=== PATIENT | female | born 1935 | race Caucasian/White ===

== ENCOUNTER → 2016-12-21 | Outpatient (CLI) | payer MEDICARE, BC ==
[~2016-12-21] MED LIST: ALBU8.5H INH; ALLO300T74 PO; ASPI81TA2 PO; ATOR40TA PO; CHOL400C7 PO; CLOB15CR4; DABI150C PO; DICL100G5 TOP; DOCU-175 PO; FLUT1DIS PO; FURO40TA5 PO; HYDR-4246 PO; IPRA3AMP AEROSOL; LISI-625 PO; MAGN250T33 PO; MULT-795 PO; OMEP20CA10 PO; POTA20TA10 PO; PRED20TA PO; SOTA80TA20 PO; TURM500C8; UBID200C8 PO
== END ==
LOC: NWCC 11:24
PROVIDERS: ATTEND Surgery
DX: L98.492 Non-pressure chronic ulcer of skin of other sites with fat layer exposed (principal); R22.2 Localized swelling, mass and lump, trunk
CPT/HCPCS: 97605; A6237

== ENCOUNTER → 2016-12-25 | Outpatient (CLI) | payer MEDICARE, BC | LOC: NWCC 10:29 | PROVIDERS: ATTEND Surgery | DX: L98.492 Non-pressure chronic ulcer of skin of other sites with fat layer exposed (principal); R22.2 Localized swelling, mass and lump, trunk | CPT/HCPCS: 97605; A6237 ==

== ENCOUNTER → 2016-12-28 | Outpatient (CLI) | payer MEDICARE, BC | LOC: NWCC 11:25 | PROVIDERS: ATTEND Surgery | DX: L98.492 Non-pressure chronic ulcer of skin of other sites with fat layer exposed (principal); R22.2 Localized swelling, mass and lump, trunk | CPT/HCPCS: 97605; A6021; A6237 ==

== ENCOUNTER → 2017-01-01 | Outpatient (CLI) | payer MEDICARE, BC | LOC: NWCC 10:24 | PROVIDERS: ATTEND Surgery | DX: L98.492 Non-pressure chronic ulcer of skin of other sites with fat layer exposed (principal); R22.2 Localized swelling, mass and lump, trunk; L59.8 Other specified disorders of the skin and subcutaneous tissue related to radiation | CPT/HCPCS: 97605; A6237; G0463 ==

== ENCOUNTER → 2017-01-02 | Outpatient (CLI) | payer MEDICARE, BC | LOC: NWCC 12:58 | PROVIDERS: ATTEND Internal Medicine | DX: L59.8 Other specified disorders of the skin and subcutaneous tissue related to radiation (principal) | CPT/HCPCS: 99183 ==

== ENCOUNTER → 2017-01-03 | Outpatient (CLI) | payer MEDICARE, BC | LOC: NWCC 13:00 | PROVIDERS: ATTEND Internal Medicine | DX: L59.8 Other specified disorders of the skin and subcutaneous tissue related to radiation (principal) | CPT/HCPCS: 99183 ==

== ENCOUNTER → 2017-01-04 | Outpatient (CLI) | payer MEDICARE, BC | LOC: NWCC 11:00 | PROVIDERS: ATTEND Internal Medicine | DX: L59.8 Other specified disorders of the skin and subcutaneous tissue related to radiation (principal); L98.492 Non-pressure chronic ulcer of skin of other sites with fat layer exposed | CPT/HCPCS: 97605; A6237; G0277; G0463; 99183 ==

== ENCOUNTER → 2017-01-07 | Outpatient (CLI) | payer MEDICARE, BC | LOC: NWCC 13:04 | PROVIDERS: ATTEND Internal Medicine | DX: L59.8 Other specified disorders of the skin and subcutaneous tissue related to radiation (principal) | CPT/HCPCS: 99183 ==

== ENCOUNTER → 2017-01-08 | Outpatient (CLI) | payer MEDICARE, BC | LOC: NWCC 09:54 | PROVIDERS: ATTEND Surgery | DX: L98.492 Non-pressure chronic ulcer of skin of other sites with fat layer exposed (principal); R22.2 Localized swelling, mass and lump, trunk | CPT/HCPCS: 97605; A6237 ==

== ENCOUNTER → 2017-01-08 | Outpatient (CLI) | payer MEDICARE, BC ==
[2017-01-08 13:07] LABS: BASOPHILS % (AUTO) 0.4 % (0-2); EOSINOPHILS # (AUTO) 0.1 T/MM3 (0-0.5); EOSINOPHILS % (AUTO) 0.9 % (0-4); HCT - HEMATOCRIT 43.1 % (36-46); IMMATURE GRANULOCYTE # (AUTO) 0.01 T/MM3 (0.00-0.03); IMMATURE GRANULOCYTE % (AUTO) 0.1 % (0.0-0.5); LYMPHOCYTES # (AUTO) 2.1 T/MM3 (1-4.8); LYMPHOCYTES % (AUTO) 26.3 % (23-45); MEAN CORPUSCULAR HGB 26.6 UUG (26-34); MEAN CORPUSCULAR HGB CONC(MCHC 32.5 GM/DL (31-37); MEAN CORPUSCULAR VOLUME 81.8 UM3 (80-100); MEAN PLATELET VOLUME 11.4 UM3 (9.4-12.4); MONOCYTES # (AUTO) 0.7 T/MM3 (0-0.8); MONOCYTES % (AUTO) 8.6 % (0-9.0); NEUTROPHILS #(AUTO)-ABSOLUTE 5.1 T/MM3 (1.8-7.7); NEUTROPHILS % (AUTO) 63.7 % (33-66); RED BLOOD COUNT 5.27 M/MM3 (4.00-5.20)
--- NOTE | 2017-01-08 13:28 | DI ---
Indication: ITS.REASON: R60.0 LOCALIZED EDEMA PROCEDURE: US VENOUS DUPLEX, LOWER EXT LT: Encounter: Initial Comparison: None Technique: Color Doppler duplex and grayscale sonographic imaging of the left lower extremity was performed. Findings: There is no evidence for acute deep venous thrombosis in the left thigh. Specifically, serial graded compression was performed from the inguinal ligament to the popliteal bifurcation, on the left thigh, demonstrating appropriate compressibility of the deep venous system. In addition, color and pulsed Doppler demonstrate appropriate spontaneous flow, variation with respiration, and augmentation with calf compression. At the ankle, normal flow is identified in the posterior tibial veins; these vessels are also normal in caliber. Impression: No evidence of acute DVT in the left lower limb. .
--- NOTE | 2017-01-08 13:30 | DI ---
INDICATION: ITS.REASON: R60.0 LOCALIZED EDEMA PROCEDURE: CHEST 2-VIEWS UPRIGHT (PA \T\ LAT) Encounter: Initial COMPARISON: December 05, 2016 FINDINGS: There is a small right pleural effusion. Mild pulmonary vascular, similar to the prior study. No lobar consolidative pneumonia or pneumothorax. Heart size and mediastinal contours are stable. Impression: Small right pleural effusion and mild pulmonary vascular congestion. .
[2017-01-08 13:31] LABS: ALBUMIN 3.5 G/DL (3.5-5.0); ALBUMIN/GLOBULIN RATIO 1.1 RATIO (1.1-2.2); ALKALINE PHOSPHATASE 153 U/L (38-126); ALT (SGPT) 42 U/L (9-52); ANION GAP 5 MEQ/L (5-15); AST (SGOT) 57 U/L (14-36); BUN/CREATININE RATIO 20 RATIO (6-26); CALCIUM 9.8 MG/DL (8.4-10.2); CHLORIDE 105 MEQ/L (98-107); CO2 - CARBON DIOXIDE 31 MEQ/L (22-30); CREATININE 1.1 MG/DL (0.7-1.2); GLOMERULAR FILTRATION RATE 48; GLUCOSE 119 MG/DL (65-110); POTASSIUM 3.7 MEQ/L (3.6-5); SODIUM 141 MEQ/L (134-144); TOTAL PROTEIN 6.7 G/DL (6.3-8.2)
[2017-01-08 14:45] LABS: PROBNP 22900 PG/ML (0-175)
== END ==
LOC: IMA 12:31
PROVIDERS: ATTEND Family Medicine
DX: R60.0 Localized edema (principal); J90 Pleural effusion, not elsewhere classified; R09.89 Other specified symptoms and signs involving the circulatory and respiratory systems; R50.9 Fever, unspecified
CPT/HCPCS: 36415; 80053; 83880; 85025; 85379; 87486; 87581; 87633; 87798

== ENCOUNTER → 2017-01-10 | Outpatient (CLI) | payer MEDICARE, BC | LOC: NWCC 08:02 | PROVIDERS: ATTEND Internal Medicine | DX: L98.492 Non-pressure chronic ulcer of skin of other sites with fat layer exposed (principal); L59.8 Other specified disorders of the skin and subcutaneous tissue related to radiation | CPT/HCPCS: 11042; 97605; A6237 ==

== ENCOUNTER → 2017-01-11 | Outpatient (CLI) | payer MEDICARE, BC | LOC: NWCC 07:55 | PROVIDERS: ATTEND Internal Medicine | DX: L59.8 Other specified disorders of the skin and subcutaneous tissue related to radiation (principal) | CPT/HCPCS: 99183 ==

== ENCOUNTER → 2017-01-15 | Outpatient (CLI) | payer MEDICARE, BC | LOC: NWCC 07:58 | PROVIDERS: ATTEND Surgery | DX: L59.8 Other specified disorders of the skin and subcutaneous tissue related to radiation (principal); L98.492 Non-pressure chronic ulcer of skin of other sites with fat layer exposed; R22.2 Localized swelling, mass and lump, trunk | CPT/HCPCS: 97605; A6209; A6237; G0277; 99183 ==

== ENCOUNTER → 2017-01-16 | Outpatient (CLI) | payer MEDICARE, BC | LOC: NWCC 07:57 | PROVIDERS: ATTEND Internal Medicine | DX: L59.8 Other specified disorders of the skin and subcutaneous tissue related to radiation (principal) | CPT/HCPCS: 99183 ==

== ENCOUNTER → 2017-01-17 | Outpatient (CLI) | payer MEDICARE, BC | LOC: NWCC 07:59 | PROVIDERS: ATTEND Internal Medicine | DX: L59.8 Other specified disorders of the skin and subcutaneous tissue related to radiation (principal) | CPT/HCPCS: 99183 ==

== ENCOUNTER → 2017-01-18 | Outpatient (CLI) | payer MEDICARE, BC ==
[~2017-01-18] MED LIST changes: +ATOR40TA64 PO; +RIVA20TA PO
== END ==
LOC: NWCC 07:59
PROVIDERS: ATTEND Internal Medicine
DX: L59.8 Other specified disorders of the skin and subcutaneous tissue related to radiation (principal); T81.89XA Other complications of procedures, not elsewhere classified, initial encounter; Y83.8 Other surgical procedures as the cause of abnormal reaction of the patient, or of later complication, without mention of misadventure at the time of the procedure; R22.2 Localized swelling, mass and lump, trunk
CPT/HCPCS: 97605; A6237; G0277; 99183

== ENCOUNTER → 2017-01-21 | Outpatient (CLI) | payer MEDICARE, BC ==
[~2017-01-21] MED LIST changes: -ATOR40TA64 PO; -RIVA20TA PO
== END ==
LOC: NWCC 07:53
PROVIDERS: ATTEND Internal Medicine
DX: L59.8 Other specified disorders of the skin and subcutaneous tissue related to radiation (principal)
CPT/HCPCS: 99183

== ENCOUNTER → 2017-01-22 | Outpatient (CLI) | payer MEDICARE, BC ==
[~2017-01-22] MED LIST changes: +ATOR40TA64 PO; +RIVA20TA PO
== END ==
LOC: NWCC 07:56
PROVIDERS: ATTEND Surgery
DX: L59.8 Other specified disorders of the skin and subcutaneous tissue related to radiation (principal); L98.492 Non-pressure chronic ulcer of skin of other sites with fat layer exposed; R22.2 Localized swelling, mass and lump, trunk
CPT/HCPCS: 97605; A6237; G0277; 99183

== ENCOUNTER → 2017-01-23 | Outpatient (CLI) | payer MEDICARE, BC | LOC: NWCC 07:57 | PROVIDERS: ATTEND Internal Medicine | DX: L59.8 Other specified disorders of the skin and subcutaneous tissue related to radiation (principal) | CPT/HCPCS: 99183 ==

== ENCOUNTER → 2017-01-24 | Outpatient (CLI) | payer MEDICARE, BC | LOC: NWCC 07:55 | PROVIDERS: ATTEND Surgery | DX: L59.8 Other specified disorders of the skin and subcutaneous tissue related to radiation (principal) | CPT/HCPCS: 99183 ==

== ENCOUNTER → 2017-01-25 | Outpatient (CLI) | payer MEDICARE, BC | LOC: NWCC 07:56 | PROVIDERS: ATTEND Internal Medicine | DX: L59.8 Other specified disorders of the skin and subcutaneous tissue related to radiation (principal) | CPT/HCPCS: A6237; G0277; 99183 ==

== ENCOUNTER → 2017-01-28 | Outpatient (CLI) | payer MEDICARE, BC | LOC: NWCC 08:00 | PROVIDERS: ATTEND Internal Medicine | DX: L59.8 Other specified disorders of the skin and subcutaneous tissue related to radiation (principal); L98.492 Non-pressure chronic ulcer of skin of other sites with fat layer exposed | CPT/HCPCS: 97605; G0277; 99183 ==

== ENCOUNTER → 2017-01-29 | Outpatient (CLI) | payer MEDICARE, BC | LOC: NWCC 07:56 | PROVIDERS: ATTEND Surgery | DX: L59.8 Other specified disorders of the skin and subcutaneous tissue related to radiation (principal); L98.492 Non-pressure chronic ulcer of skin of other sites with fat layer exposed | CPT/HCPCS: 97605; A6237; G0277; 99183 ==

== ENCOUNTER → 2017-01-30 | Outpatient (CLI) | payer MEDICARE, BC | LOC: NWCC 08:00 | PROVIDERS: ATTEND Internal Medicine | DX: L59.8 Other specified disorders of the skin and subcutaneous tissue related to radiation (principal) | CPT/HCPCS: 99183 ==

== ENCOUNTER → 2017-01-31 | Outpatient (CLI) | payer MEDICARE, BC | LOC: NWCC 07:58 | PROVIDERS: ATTEND Internal Medicine | DX: L59.8 Other specified disorders of the skin and subcutaneous tissue related to radiation (principal) | CPT/HCPCS: 99183 ==

== ENCOUNTER → 2017-02-01 | Outpatient (CLI) | payer MEDICARE, BC | LOC: NWCC 07:55 | PROVIDERS: ATTEND Orthopaedic Surgery | DX: L59.8 Other specified disorders of the skin and subcutaneous tissue related to radiation (principal) | CPT/HCPCS: A6237; G0277; 99183 ==

== ENCOUNTER → 2017-02-04 | Outpatient (CLI) | payer MEDICARE, BC | LOC: NWCC 07:56 | PROVIDERS: ATTEND Internal Medicine | DX: L59.8 Other specified disorders of the skin and subcutaneous tissue related to radiation (principal) | CPT/HCPCS: 97605; G0277; 99183 ==

== ENCOUNTER → 2017-02-05 | Outpatient (CLI) | payer MEDICARE, BC | LOC: NWCC 08:30 | PROVIDERS: ATTEND Surgery | DX: L98.492 Non-pressure chronic ulcer of skin of other sites with fat layer exposed (principal); L59.8 Other specified disorders of the skin and subcutaneous tissue related to radiation | CPT/HCPCS: 97605; A6237 ==

== ENCOUNTER 2017-02-07 09:29 | Day surgery (SDC) | payer MEDICARE, BC ==
[~2017-02-07] VITALS: Ht 154.9 cm; Wt 88.7 kg
[2017-02-07] VITALS (7 sets, daily range): BP systolic 119–146; BP diastolic 64–80; PULSE 66–99; RESP 16; TEMP 97–98.2; O2SAT 91–97; Ht 154.9 cm; Wt 88.7 kg
[~2017-02-07 09:29] MED LIST changes: +LIDOCAINE 1% (10mg/ml) 2ml SDV INJ ONE; +NORMAL SALINE 1,000 ML IV PRN
--- OUTSIDE RECORDS SUMMARY | 2017-02-07 09:37 | XMS REPORT | Summary of Care ---
Author Author Erica NEWTON Zeinab Organization Unknown Address [address] [place], [place] [id number] Phone Unavailable Care Team Providers Care Product Managent Intern Name Role Phone Zienab Maldonado APRN Unavailable Unavailable Giovanny Cutler M.D. Unavailable Unavailable Cynthia Gonsalves Unavailable Unavailable Unavailable Unavailable Functional Status Name Dates Details Functional status health issues are not documented Status: Name Dates Details Cognitive status health issues are not documented Status: Problems Name Dates Details Frequent episodes of bronchitis (490, J40) Status: Active Hypertension (401.9, I10) Status: Active Hyperlipidemia (272.4, E78.5) Status: Active Congestive heart failure (428.0, I50.9) Status: Active Chronic cough (786.2, R05) Status: Active Nocturnal hypoxemia (327.24, G47.34) Status: Active Obstructive sleep apnea (327.23, G47.33) Status: Active 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 Isaias Cutler M.D. * Start Active Flonase Allergy Relief 50 MCG/ACT Nasal Suspension * Refills: 0 Isaias Cutler M.D. * Start Active Allopurinol 300 MG Oral Tablet * Refills: 0 Isaias Cutler M.D. * Start Active Furosemide 40 MG Oral Tablet * Refills: 0 Omayra Amado, Isaias Baltazar * Start Active Klor-Con M20 20 MEQ Oral Tablet Extended Release * Refills: 0 Isaias Cutler M.D. Start Active Co Q-10 200 MG Oral Capsule * Refills: 0 Omayra Amado, Isaias Baltazar * Start Active Sotalol HCl - 80 MG Oral Tablet * Refills: 0 Omayra Amado, Isaias Baltazar * Start Active Magnesium 250 MG Oral Tablet * Refills: 0 Omayra Amado, Isaias Baltazar * Start Active Centrum Silver Oral Tablet * Refills: 0 Omayra Amado, Iasias Baltazar * Start Active Omeprazole 20 MG Oral Capsule Delayed Release * Refills: 0 Omayra Amado, Isaias Baltazar * Start Active Oxygen DC Oxygen per pt.Home O2 at 2L 8hrs w/sleep. Concentrator only. Dx: J84.1. Noc Ox SpO2<88=3:31:20, Lowest=62% * Quantity: 1 Refills: 0 Omayra Amado, Isaias Baltazar * Start Active Clobetasol Propionate 0.05 % External Cream APPLY SPARINGLY TO AFFECTED AREA(S) TWICE DAILY * Refills: 0 * Start 29-Nov-2016 Active Vitamin D3 400 UNIT Oral Capsule * Refills: 0 * Start 29-Nov-2016 Active Turmeric 500 MG Oral Tablet * Refills: 0 * Start 29-Nov-2016 Active Stool Softener 100 MG Oral Tablet * Refills: 0 * Start 29-Nov-2016 Active Pradaxa 150 MG Oral Capsule * Refills: 0 * Start 27-Dec-2016 Active Atorvastatin Calcium 40 MG Oral Tablet * Refills: 0 * Start 27-Dec-2016 Active Ipratropium-Albuterol 0.5-2.5 (3) MG/3ML Inhalation Solution * Refills: 0 * Start 27-Dec-2016 Active Perforomist 20 MCG/2ML Inhalation Nebulization Solution USE 1 VIAL IN NEBULIZER EVERY 12 HOURS. dx:J44.9 * Quantity: 120 Refills: 11 Tungate PIPE ASSEMBLY WORKER, Zeinab * Start 28-Dec-2016 Active Budesonide 0.5 MG/2ML Inhalation Suspension Use one vial in nebulizer twice daily DX:COPD J44.9 * Quantity: 120 Refills: 11 Tungate PIPE ASSEMBLY WORKER, Zeinab * Start 28-Dec-2016 Active Allergies and Adverse Reactions Name Dates Details Morphine Derivatives (Allergy) Status: Active Sulfa Drugs (Allergy) Status: Active Adhesive Tape (Allergy) Status: Active Past Medical History Name Dates Details History of hyperlipidemia (V12.29, Z86.39) Status: Resolved History of hypertension (V12.59, Z86.79) Status: Resolved History of hyperthyroidism (V12.29, Z86.39) Status: Resolved History of Kidney tumor (239.5, D49.519) Status: Resolved History of malignant neoplasm (V10.90, Z85.9) Status: Resolved History of malignant neoplasm of breast (V10.3, Z85.3) Status: Resolved History of osteoarthritis (V13.4, Z87.39) Status: Resolved Procedures Procedure Dates Details History of Appendectomy History of Hysterectomy History of Cataract Surgery History of Knee Surgery Left History of Gallbladder Surgery History of Knee Surgery Right History of Colonoscopy History of Breast Surgery Mastectomy Procedures not documented Immunization Name Dates Details Prevnar 13 Intramuscular Suspension Lot #: [id number] on: Family History Name Dates Details Family history of arthritis (V17.7, Z82.61) Status: Active Family history of hypertension (V17.49, Z82.49) Status: Active Family history of cerebrovascular accident (CVA) (V17.1, Z82.3) Status: Active Name Dates Details Family history of malignant neoplasm (V16.9, Z80.9) Status: Active Family history of Chronic cough (786.2, R05) Status: Active Name Dates Details Family history of malignant neoplasm (V16.9, Z80.9) Status: Active Family history of cardiac disorder (V17.49, Z82.49) Status: Active Social History Name Dates Details Unknown if ever smoked Vital Signs Date Test Result Details 27-Dec-2016 10:23 BP Systolic 122 mm[Hg] Status: Comments: Location: ; Position: BP Diastolic 84 mm[Hg] Status: Comments: Location: ; Position: Heart Rate 74 /min Status: Comments: Location: ; Physical Findings 20 Status: Comments: Respiration Height 61 in Status: Weight 187 lb Status: Physical Findings 93 Status: Comments: O2 Saturation Body Mass Index Calculated 35.33 kg/m2 Status: Body Surface Area Calculated 1.84 m2 Status: 29-Nov-2016 10:33 BP Systolic 136 mm[Hg] Status: Comments: Location: ; Position: BP Diastolic 84 mm[Hg] Status: Comments: Location: ; Position: Heart Rate 113 /min Status: Comments: Location: ; Physical Findings 18 Status: Comments: Respiration Height 61 in Status: Weight 193 lb Status: Physical Findings 93 Status: Comments: O2 Saturation Body Mass Index Calculated 36.47 kg/m2 Status: Body Surface Area Calculated 1.86 m2 Status: Results Date Description Value Details Results not documented Plan of Care Name Dates Details Planned Observations Planned Goals not documented Planned Encounters Appointment; Provider: Zeinab Maldonado A.P.R.N. On 10:15 Interventions Provided Medication Changes* Advair Diskus 100-50 MCG/DOSE Inhalation Aerosol Powder Breath Activated - Completed * Budesonide 0.5 MG/2ML Inhalation Suspension - Start * Perforomist 20 MCG/2ML Inhalation Nebulization Solution - Start Instructions Name Dates Details Instructions not documented Encounters Appointment; Zeinab Maldonado A.P.R.N. Encounter Diagnosis: Problem not documented On 29-Nov-2016 10:30 Appointment; Zeinab Maldonado A.P.R.N. Encounter Diagnosis: Problem not documented On 01-Nov-2016 10:00 Appointment; Isaias Cutler M.D. Encounter Diagnosis: Problem not documented On 13:45 Appointment; Isaias Cutler M.D. Encounter Diagnosis: Problem not documented On 11:00
--- OUTSIDE RECORDS SUMMARY | 2017-02-07 09:37 | XMS REPORT | Summary of Care ---
Author Author Erica NEWTON Zeinab Organization Unknown Address [address] [place], [place] [id number] Phone Unavailable Care Team Providers Care Varnish Finisher Name Role Phone Zeinab Maldonado APRN Unavailable Unavailable Giovanny Cutler M.D. 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 Obstructive sleep apnea (327.23, G47.33) Status: Active Congestive heart failure (428.0, I50.9) Status: Active Chronic cough (786.2, R05) Status: Active Hyperlipidemia (272.4, E78.5) Status: Active Nocturnal hypoxemia (327.24, G47.34) Status: Active Chronic obstructive pulmonary disease (496, J44.9) Status: Active Hypertension (401.9, I10) Status: Active Frequent episodes of bronchitis (490, J40) Status: Active Chronic bronchitis, unspecified chronic bronchitis type (491.9, J42) Status: Active Medications Name Dates Details ProAir HFA 108 (90 Base) MCG/ACT Inhalation Aerosol Solution INHALE 2 PUFFS 3 TIMES DAILY NEEDED. Isaias Cutler M.D. * Start Active Flonase Allergy Relief 50 MCG/ACT Nasal Suspension * Refills: 0 Isaias Cutler M.D. Start Active Allopurinol 300 MG Oral Tablet * Refills: 0 Isaias Cutler M.D. Start Active Furosemide 40 MG Oral Tablet * Refills: 0 Isaias Cutler M.D. * Start Active Klor-Con M20 20 MEQ [...] Omayra Amado, Isaias Baltazar * Start Active Omeprazole 20 MG [...] dx:J44.9 * Quantity: 120 Refills: 11 Tungate ROUGE MIXER, Zeinab * Start 28-Dec-2016 Active Budesonide 0.5 MG/2ML Inhalation Suspension Use one vial in nebulizer twice daily DX:COPD J44.9 * Quantity: 120 Refills: 11 Tungate ROUGE MIXER, Zeinab * Start 28-Dec-2016 Active Allergies and [...] Resolved Procedures Procedure Dates Details History of Breast Surgery Mastectomy History of Appendectomy History of Hysterectomy History of Cataract Surgery History of Gallbladder Surgery History of Knee Surgery Left History of Knee Surgery Right History of Colonoscopy Procedures not documented Immunization Name Dates Details Prevnar 13 Intramuscular Suspension Lot #: [id number] on: Family History Name Dates Details Family history of arthritis (V17.7, Z82.61) Status: Active Family history of hypertension (V17.49, Z82.49) Status: Active Family history of cerebrovascular accident (CVA) (V17.1, Z82.3) Status: Active Name Dates Details Family history of malignant neoplasm (V16.9, Z80.9) Status: Active Family history of Chronic cough (786.2, R05) Status: Active Name Dates Details Family history of cardiac disorder (V17.49, Z82.49) Status: Active Family history of malignant neoplasm (V16.9, Z80.9) Status: Active Social History Name Dates Details [...] Body Surface Area Calculated 1.84 m2 Status: Results Date Description Value Details [...]
--- OUTSIDE RECORDS SUMMARY | 2017-02-07 09:39 | XMS REPORT | Referral Summary ---
Author Author [facility] [place], [facility] Organization [facility] Address Unknown Phone Unavailable Care Team Providers Care Tag Marker Name Role Phone Bradley Acevedo Primary Care Physician [phone] Encounter Date(s): 11/12/16 - 11/12/16 [facility] [place] [place] [address]- Discharge Diagnosis: Congestive heart failure Discharge Diagnosis: Pulmonary fibrosis Discharge Diagnosis: Ulcer of chest wall Discharge Disposition: 01-Home or Self Care Attending Physician: Bruna Carballo PA-C Admitting Physician: Bruna Carballo PA-C Referring Physician: Aris Higginbotham MD Vital Signs Most recent to 1 oldest [Reference Range]: Temperature Tympanic 36.9 degC [36.6-38.1 degC] (11/12/16 1:27 PM) Peripheral Pulse 70 bpm Rate [60-100 bpm] (11/12/16 1:27 PM) Blood Pressure 132/76 mmHg [90-140/60-90 mmHg] (11/12/16 1:27 PM) SpO2 94 % (11/12/16 1:27 PM) Problem List Condition Effective Dates Status Health Status Informant Acute Active pain(Confirmed) At risk for Active injury(Confirmed)1 Bronchiectasis(Confi Active rmed) Cardiomyopathy, Active nonischemic(Confirme d) Congestive heart Active failure(Confirmed) Disease/gallbladder( 2009 Active Confirmed) Disease/hydrodistent 2011 Active ion of bladder(Confirmed) Thyroid Active disease(Confirmed) Pulmonary Active fibrosis(Confirmed) GERD Active (gastroesophageal reflux disease)(Confirmed) Gout(Confirmed) Active Hearing Active loss(Confirmed) Heart Active disease(Confirmed) Hyperlipidemia(Confi Active rmed) Hypertension(Confirm Active ed) Hypothyroidism(Confi Active rmed) Irregular heart Active rhythm(Confirmed) Kidney Active disease(Confirmed) Kidney Active stones(Confirmed) Breast 2003 Active cancer(Confirmed)2 Elevated 2007 Active CEA(Confirmed) Elevated 2013 Active CEA(Confirmed) Dermatophytosis of Active nail(Confirmed) Osteoarthritis(Confi Active rmed) Pain in Active limb(Confirmed) Sleep Active apnea(Confirmed) Urethral Active stricture(Confirmed) Chicken Active pox(Confirmed) Ventricular Active arrhythmia(Confirmed ) 1Problem added automatically by system based on initiation of Risk for Injury Plan of Care 29 nodes positive,treated with chemo and radiation Allergies, Adverse Reactions, Alerts Substance Reaction Severity Status Adhesive Bandage Active morphine Vomiting Medium Active sulfanilamide topical Active Tape1 Active 1the adhesive Medications allopurinol 300 mg oral tablet 150 mg 0.5 tabs, Oral, Daily, # 90 tabs, 0 Refill(s), Pharmacy: [id number], 0.5 tabs Oral Daily Start Date: 07/27/16 Status: Ordered aspirin 81 mg, Oral, Daily, 0 Refill(s) Start Date: 07/10/16 Status: Ordered Centrum Silver 1 tabs, Daily, 0 Refill(s) Start Date: 04/12/14 Status: Ordered Co Q-10 100 mg, Oral, Daily, 0 Refill(s) Start Date: 04/12/14 Status: Ordered furosemide 40 mg oral tablet 1 tabs, Oral, Daily, # 30 tabs, 0 Refill(s) Start Date: 04/12/14 Status: Ordered Klor-Con M20 2 caps, Oral, Daily, 0 Refill(s) Start Date: 04/12/14 Status: Ordered magnesium oxide 250 mg, Oral, BID, 0 Refill(s) Start Date: 04/12/14 Status: Ordered Misc Medication TUMERIC 1 QD, 0 Refill(s) Start Date: 11/12/16 Status: Ordered omeprazole 20 mg oral delayed release capsule See Instructions, TAKE ONE CAPSULE BY MOUTH ONCE DAILY, # 90 tabs, 0 Refill(s) Start Date: 10/24/16 Status: Ordered ProAir HFA 90 mcg/inh inhalation aerosol 2 puffs, Inhalation, QID, as needed for wheezing, # 8.5 g, 0 Refill(s) Start Date: 02/01/16 Status: Ordered Refresh 2 drops, Eye-Both, Daily, USES PRN, 0 Refill(s) Start Date: 02/04/16 Status: Ordered sertraline 50 mg oral tablet See Instructions, TAKE ONE TABLET BY MOUTH ONCE DAILY, # 30 tabs, 5 Refill(s), eRx: [id number], TAKE ONE TABLET BY MOUTH ONCE DAILY Start Date: 09/10/16 Status: Ordered sotalol 80 mg, Oral, BID, 0 Refill(s) Start Date: 03/06/16 Status: Ordered Vitamin D3 400 intl units oral tablet 400 Intl_Units 1 tabs, Oral, Daily, 0 Refill(s) Start Date: 04/12/14 Status: Ordered Voltaren 1% topical gel 1 berenice, Topical, QID, # 100 g, 3 Refill(s) Start Date: 02/05/16 Stop Date: 06/04/16 Status: Ordered Results No data available for this section Immunizations Given and Recorded Vaccine Date Status Refusal Reason influenza virus vaccine, inactivated 08/24/16 Given influenza virus vaccine, inactivated 07/27/15 Given influenza virus vaccine, inactivated1 08/04/14 Recorded influenza virus vaccine, live 07/21/13 Given influenza virus vaccine, live 08/13/12 Given 1Location History: See scanned document Procedures Procedure Date Related Diagnosis Body Site Colonoscopy 06/18/13 Colonoscopy/normal,likely not need to repeat 2012 unless symptoms warrant1 Esophagogastroduodenoscopy2 2012 Calibration of urethra and dilatation 2011 Cystoscopy 2011 Pelvic examination/bimanual 2012 Procedure/SLT Laser vaporization 2011 Removal/port a cath 2010 Replacement/right knee 2010 Esophagogastroduodenoscopy 2009 Replacement/left knee 2009 Colonoscopy/normal/repeat in 10 years3 2008 Hospital admission/CHF 07/2007 Mastectomy/left4 2002 Port-a-cath in place 2002 Hysterectomy,BSO 1970 Appendectomy CPAP - Continuous positive airways pressure 1normal, not need to repeat unless symptoms warrant, due to age. 2hyperplastic gastric mucosa 3normal, repeat in 10 years 4left Social History Social History Type Response Smoking Status Never smoker Assessment and Plan Extracted from: Title: Office Visit Note- Hospital Author: Bruna Carballo PA-C Date : 11/12/16 F/u, CHF Assessment/Plan Congestive heart failure Pt appears to be doing better at this time. Continue on current dose of Lasix. Monitor sx at this time. Willrecheck a CXRat the end of this week. Shewas also given information about a low-sodium diet. She is to call and let us know if she starts worsening again. Ordered: [facility] 7 Day Disch [id number] XR Chest 2 Views Pulmonary fibrosis Continue with Albuterol and incentive spirometer. She is going to see pulmonology, however, it is not until next month. Ordered: [facility] 7 Day Disch [id number] Ulcer of chest wall I think pt will be stable enough to go through with the procedure. I talked with Dr. Higginbotham's nurse, particularly if she needs any specific testing done for clearance. She does not need anything checked prior, but will get a CXR to recheck things. Also d/w pt about the issues with postponing the procedure, and the possible complications with having the wound vac in for too long. Pt does want to undergo the procedure next week, but daughter is very concerned. Ordered: [facility] 7 Day Disch [id number] Extracted from: Title: Ambulatory Patient Education Author: Bruna Carballo PA-C Date : 11/12/16 Cardiovascular Low-Sodium Eating Plan Sodium raises blood pressure and causes water to be held in the body. Getting less sodium from food will help lower your blood pressure, reduce any swelling, and protect your heart, liver, and kidneys. We get sodium by adding salt ( sodium chloride) to food. Most of our sodium comes from canned, boxed, and frozen foods. Restaurant foods, fast foods, and pizza are also very high in sodium. Even if you take medicine to lower your blood pressure or to reduce fluid in your body, getting less sodium from your food is important. WHAT IS MY PLAN? Most people should limit their sodium intake to 2,300 mg a day. Your health care provider recommends that you limit your sodium intake to a day. WHAT DO I NEED TO KNOW ABOUT THIS EATING PLAN? For the low-sodium eating plan, you will follow these general guidelines: Choose foods with a % Daily Value for sodium of less than 5% (as listed on the food label). Use salt-free seasonings or herbs instead of table salt or sea salt. Check with your health care provider or pharmacist before using salt substitutes. Eat fresh foods. Eat more vegetables and fruits. Limit canned vegetables. If you do use them, rinse them well to decrease the sodium. Limit cheese to 1 oz (28 g) per day. Eat lower-sodium products, often labeled as "lower sodium" or "no salt added." Avoid foods that contain monosodium glutamate (MSG). MSG is sometimes added to [place] food and some canned foods. Check food labels (Nutrition Facts labels) on foods to learn how much sodium is in one serving. Eat more home-cooked food and less restaurant, buffet, and fast food. When eating at a restaurant, ask that your food be prepared with less salt, or no salt if possible. HOW DO I READ FOOD LABELS FOR SODIUM INFORMATION? The Nutrition Facts label lists the amount of sodium in one serving of the food. If you eat more than one serving, you must multiply the listed amount of sodium by the number of servings. Food labels may also identify foods as: Sodium freeLess than 5 mg in a serving. Very low mg or less in a serving. Low carhrq926 mg or less in a serving. Light in yakiyl72% less sodium in a serving. For example, if a food that usually has 300 mg of sodium is changed to become light in sodium, it will have 150 mg of sodium. Reduced smoiie66% less sodium in a serving. For example, if a food that usually has 400 mg of sodium is changed to reduced sodium, it will have 300 mg of sodium. WHAT FOODS CAN I EAT? Grains Low-sodium cereals, including oats, puffed wheat and rice, and shredded wheat cereals. Low-sodium crackers. Unsalted rice and pasta. Lower-sodium bread. Vegetables Frozen or fresh vegetables. Low-sodium or reduced-sodium canned vegetables. Low- sodium or reduced-sodium tomato sauce and paste. Low-sodium or reduced-sodium tomato and vegetable juices. Fruits Fresh, frozen, and canned fruit. Fruit juice. Meat and Other Protein Products Low-sodium canned tuna and salmon. Fresh or frozen meat, poultry, seafood, and fish. Meléndez. Unsalted nuts. Dried beans, peas, and lentils without added salt. Unsalted canned beans. Homemade soups without salt. Eggs. Dairy Milk. Soy milk. Ricotta cheese. Low-sodium or reduced-sodium cheeses. Yogurt. Condiments Fresh and dried herbs and spices. Salt-free seasonings. Onion and garlic powders. Low-sodium varieties of mustard and ketchup. Fresh or refrigerated horseradish. Lemon juice. Fats and Oils Reduced-sodium salad dressings. Unsalted butter. Other Unsalted popcorn and pretzels. The items listed above may not be a complete list of recommended foods or beverages. Contact your dietitian for more options. WHAT FOODS ARE NOT RECOMMENDED? Grains Instant hot cereals. Bread stuffing, pancake, and biscuit mixes. Croutons. Seasoned rice or pasta mixes. Noodle soup cups. Boxed or frozen macaroni and cheese. Self-rising flour. Regular salted crackers. Vegetables Regular canned vegetables. Regular canned tomato sauce and paste. Regular tomato and vegetable juices. Frozen vegetables in sauces. Salted [place] fries. Olives. Pickles. Relishes. Sauerkraut. Salsa. Meat and Other Protein Products Salted, canned, smoked, spiced, or pickled meats, seafood, or fish. Shepherd, ham, sausage, hot dogs, corned beef, chipped beef, and packaged luncheon meats. Salt pork. Jerky. Pickled covarrubias. Anchovies, regular canned tuna, and sardines. Salted nuts. Dairy Processed cheese and cheese spreads. Cheese curds. Blue cheese and cottage cheese. Buttermilk. Condiments Onion and garlic salt, seasoned salt, table salt, and sea salt. Canned and packaged gravies. Worcestershire sauce. Tartar sauce. Barbecue sauce. Teriyaki sauce. Soy sauce, including reduced sodium. Steak sauce. Fish sauce. Oyster sauce. Cocktail sauce. Horseradish that you find on the shelf. Regular ketchup and mustard. Meat flavorings and tenderizers. Bouillon cubes. Hot sauce. Tabasco sauce. Marinades. Taco seasonings. Relishes. Fats and Oils Regular salad dressings. Salted butter. Margarine. Ghee. Shepherd fat. Other Potato and tortilla chips. [place] chips and puffs. Salted popcorn and pretzels. Canned or dried soups. Pizza. Frozen entrees and pot pies. The items listed above may not be a complete list of foods and beverages to avoid. Contact your dietitian for more information. This information is not intended to replace advice given to you by your health care provider. Make sure you discuss any questions you have with your health care provider. Document Released: 03/29/2003 Document Revised: 10/28/2015 Document Reviewed: [employer] Patient Education 2016 [employer] No follow up information was provided.
--- OUTSIDE RECORDS SUMMARY | 2017-02-07 09:39 | XMS REPORT | Continuity of Care Document ---
Author Author [facility] Organization [facility] Address Unknown Phone Unavailable Support Name Relationship Address Phone ABDOULAYE JONES FACS, MD Caregiver [address] [place] [address] [place] [address] Unavailable JUNI HECK MD Caregiver [address] [place] [address] [place] [address] Unavailable FRANCHESKA LOREDO Next Of Kin [address] [place], [place] [id number] Insurance Providers Guarantor Matt Benitez Address [address] [address] * Email [id number] [facility] Policy Number [id number] Subscriber's Name Matt Benitez Relationship 18 Self Group Number [id number] Payer Medicare Policy Number [id number] Subscriber's Name Matt Benitez Relationship 18 Self Problems Active Problems Medical Problem Onset Date Status Acute bronchitis Unknown Acute Acute dyspnea Unknown Acute Atrial fibrillation Unknown Chronic Breast cancer Unknown CAD (coronary artery disease) Unknown Chronic CHF (congestive heart failure) Unknown Chronic Cellulitis Unknown Acute Chest pain at rest Unknown Acute Constipation Unknown Chronic DJD (degenerative joint disease) Unknown Chronic Elevated troponin Unknown Acute GERD (gastroesophageal reflux disease) Unknown Chronic Gallbladder disease Unknown Chronic Gout Unknown Chronic Hypercholesteremia Unknown Chronic Hypertension Unknown Chronic Hypokalemia Unknown Acute Hypothyroidism Unknown Chronic Kidney stones Unknown OA (osteoarthritis) Unknown Chronic Obesity Unknown Chronic Open wound of chest (wall), complicated Unknown Acute Renal insufficiency Unknown Chronic Sepsis Unknown Resolved Sepsis affecting skin Unknown Acute Ventricular arrhythmia Unknown Past Problems Medical Problem Onset Date Atrial fibrillation Unknown COPD (chronic obstructive pulmonary disease) Unknown Elevated transaminase level Unknown Encounter for management of vacuum-assisted closure (VAC) of wound Unknown Fever Unknown Gastroenteritis Unknown Patient left without being seen Unknown Medications Current Home Medications Medication Dose Units Route Directions Days Qty Instructions Start Date Albuterol Sulfate (Proair Hfa 90 Mcg/Actuation) 8.5 Gm Hfa.aer.ad 2 Puff Inhalation Bidprn 05/04/16 Allopurinol 300 Mg Tablet 150 Mg Oral Daily 06/12/10 Aspirin 81 Mg Tab.chew 81 Mg Oral Daily 06/30/16 Atorvastatin Calcium (Lipitor) 40 Mg Tablet 40 Mg Oral Bedtime 30 Tablet 12/08/16 Cholecalciferol (Vitamin D3) (Vitamin D3) 400 Unit Capsule 400 Unit Oral Qd 12/05/16 Clobetasol Propionate 15 Gm Cream..g. 1 Applic Twice A Day Dabigatran Etexilate Mesylate (Pradaxa) 150 Mg Capsule 150 Mg Oral Twice A Day for Atrial Fibrillation 60 Capsule 12/08/16 Diclofenac Sodium (Voltaren) 100 Gm Gel..gram. 1 Applic Topically As Needed 12/05/16 Docusate Sodium 100 Mg Capsule 100 Mg Oral Daily 12/05/16 Fluticasone/Salmeterol (Advair 100-50 Diskus) 1 Disk W/Dev Inhaler 1 Puff Oral Every 12 Hours 12/05/16 Furosemide 40 Mg Tablet 40 Mg Oral Daily 08/05/16 Hydrocodone/Acetaminophen ([place] 5-325 Tablet) 5-325 Tablet 1 Tab Oral Every 6 Hours as needed for Pain 20 Tablet 12/08/16 Ipratropium/Albuterol Sulfate (Iprat-Albut 0.5-3(2.5) Mg/3 Ml) 3 Ml Ampul.neb 3 Ml Aerosol Tx. Four Times Daily as needed for Shortness Of Air/Wheezing 100 Diagnosis: J 44.9 12/08/16 Lisinopril 5 Mg Tablet 5 Mg Oral Daily 30 Tablet 12/08/16 Magnesium Oxide (Magnesium) 250 Mg Tablet 250 Mg Oral Bedtime Multivitamins W-Minerals/Lut (Centrum Silver Tablet) 1 Tab Tablet 1 Tab Oral Daily 06/12/10 Omeprazole 20 Mg Capsule.dr 20 Mg Oral Daily 05/04/16 Potassium Chloride (Klor-Con M20) 20 Meq Tablet 40 Meq Oral Qd Prednisone 20 Mg Tablet 40 Mg Oral Give With Breakfast for Copd Exacerbation 10 Tablet Take for 5 days 12/08/16 Sotalol Hcl (Betapace) 80 Mg Tablet 80 Mg Oral Before Meals Twice A Day 08/05/16 Turmeric Root Extract (Turmeric) 500 Mg Capsule 11/10/16 Ubidecarenone (Co Q-10) 200 Mg Capsule 200 Mg Oral Daily 10/26/10 Past Home Medications Medication Directions Ordered Status Acetalazamide , 04/03/12 Discontinued Acetalazamide , 500 Mg Oral 11/27/10 Discontinued Acetalazamide , 07/05/10 Discontinued Acetazolamide (Diamox Sequels) 500 Mg Capsule.sa, 500 Mg Oral 2 X Per Week Discontinued Alopurinol , 07/05/10 Discontinued Amiloride , 12/14/11 Discontinued Amiloride Hcl 5 Mg Tablet, 2.5 Mg Oral Daily 12/17/11 Discontinued Armidex , 07/11/11 Discontinued B2 , 07/11/11 Discontinued Centrum Silver , 07/05/10 Discontinued Diamox , 500 Mg Oral Saturday And 11/27/10 Discontinued Ergocalciferol (Vitamin D) 50,000 Unit Capsule, 48194 Unit Oral 2X Wk Discontinued Furosemide (Lasix) 40 Mg Tablet, 40 Mg Oral Daily 06/12/10 Discontinued Furosemide 40 Mg Tablet, 1 Tab Oral Daily 06/27/16 Discontinued Furosemide , 07/05/10 Discontinued Glocosa , 07/11/11 Discontinued Glucosam Hcl/Chondro Garg A/C/Mn (Glucos-Chond 500 Complex Cp) 1 Cap Capsule, 1 Cap Oral Twice A Day 06/12/10 Discontinued Glucosomine/Massimo , 07/05/10 Discontinued Hydrocodone Bit/Acetaminophen (Lortab 5) 1 Tab Tablet, 1 Tab Oral Q 6 Hours 06/12/10 Discontinued Iron , 65 Mg Oral Daily 05/26/10 Discontinued Klor-Con , 07/05/10 Discontinued Levofloxacin (Levaquin) 500 Mg Tablet, 1 Tab Oral Daily 12/25/15 Discontinued Levothyroxine Sodium (Synthroid) 25 Mcg Tablet, 25 Mcg Oral Daily 06/12/10 Discontinued Lisinopril 10 Mg Tablet, 10 Mg Oral Daily 11/27/10 Discontinued Lisinopril 10 Mg Tablet, 10 Mg Oral Daily 06/12/10 Discontinued Lisinopril , 07/05/10 Discontinued Losartan Potassium 100 Mg Tablet, 50 Mg Oral Bedtime 06/30/16 Discontinued Losartan Potassium 100 Mg Tablet, 100 Mg Oral Bedtime 02/04/16 Discontinued Macr , 07/05/10 Discontinued Magnesium , 1 Tab Oral Daily 06/12/10 Discontinued Magnesium , 09/15/10 Discontinued Magnesium Oxide 400 Mg Tablet, 250 Mg Oral Daily 10/26/10 Discontinued Metolazone 5 Mg Tablet, 5 Mg Oral M, W, F Only 06/12/10 Discontinued Metolazone , 07/05/10 Discontinued Multivitamins W-Minerals/Lut (Centrum Silver Tablet) 1 Tab Tablet, 1 Tab Oral Daily 10/26/10 Discontinued [place] 3 , 07/11/11 Discontinued Omeprazole Magnesium (Prilosec Otc) 20 Mg Tablet.dr, 20 Mg Oral As Needed 16/10 Discontinued Omeprazole Magnesium (Prilosec Otc) 20 Mg Tablet.dr, 20 Mg Oral Twice A Day 06/12/10 Discontinued Pacer , 07/05/10 Discontinued Pepcid , 07/11/11 Discontinued Potassium Chloride (Klor-Con M20) 20 Meq Tab.prt.sr, 20 Meq Oral 2 Tab Qid Discontinued Pravastatin Sodium 80 Mg Tablet, 80 Mg Oral Bedtime 06/15/16 Discontinued Pravastin , 07/05/10 Discontinued Pravastin , 07/05/10 Discontinued Prednisone 20 Mg Tablet, 20 Mg Oral As Directed 12/25/15 Discontinued Prilosec , 07/11/11 Discontinued Promethazine Hcl/Codeine (Promethazine-Codeine Syrup) 118 Ml Syrup, 5 Ml Oral Every 6 Hours as needed for Cough 12/25/15 Discontinued Sotalol Hcl (Betapace) 80 Mg Tablet, 40 Mg Oral Twice A Day 05/04/16 Discontinued Synthroid , 07/11/11 Discontinued Ubidecarenone (Co Q-10) 200 Mg Capsule, 200 Mg Oral Daily 04/03/12 Discontinued Ubidecarenone/Vitamin E Mixed (Coq10 Sg 100 Softgel) 1 Cap Capsule, 1 Cap Oral Bedtime 06/12/10 Discontinued Vit D , 07/05/10 Discontinued Vitamin D , 12/14/11 Discontinued Zolpidem , 07/11/11 Discontinued Social History Social History Problem Response Recorded Date/Time Onset Date Status Chewing Tobacco Status No 06/18/2013 7:15am Not Applicable Not Applicable Hx Substance Use No 12/05/2016 8:14pm Not Applicable Not Applicable Hx Alcohol Use Y RARE 12/05/2016 8:14pm Not Applicable Not Applicable Has the pt used tobacco in the last 12 months No 12/06/2016 12:22am Not Applicable Not Applicable Tobacco Usage none 12/25/2015 9:29am Not Applicable Not Applicable Hospital Discharge Instructions Current inpatient/outpatient. Discharge instructions are currently unavailable. Plan of Care Current inpatient/outpatient. The plan of care is currently unavailable Functional Status No functional status results. Allergies, Adverse Reactions, Alerts Allergen Type Severity Reaction Status Last Updated Sulfa (Sulfonamide Antibiotics) Allergy Intermediate NAUSEA, VOMIT Active 11/10/16 Morphine Allergy Intermediate SHORTNESS OF BREATH Active 11/10/16 adhesive tape Allergy Unknown Active 11/10/16 Immunizations Query Response on File Recorded Date/Time Hx Influenza Vaccination Y JUL 2016 12/06/16 12:22am Hx Pneumococcal Vaccination Y April 2016 12/06/16 12:22am Hx Influenza Vaccination Y JUL 2016 12/06/16 12:22am Influenza Vaccine Hx fall jul 2016 12/08/16 12:22pm Vital Signs Acute Vital Signs Vital Response Date/Time Temperature (Fahrenheit) 98.5 deg F (96.8 - 99.1) 12/08/2016 3:35pm Temperature (Calculated Celsius) 36.55960 degrees C (36.0 - 37.3) 12/08/2016 3:35pm Temperature Source Oral 12/08/2016 3:35pm Pulse Rate (adult) 69 bpm (60 - 100) 12/08/2016 3:35pm Respiratory Rate 14 breaths/min (10 - 20) 12/08/2016 3:35pm O2 Sat by Pulse Oximetry 98 % (90 - 100) 12/08/2016 3:35pm Oxygen Delivery Method Room Air 12/08/2016 4:39pm Oxygen Delivery Method Nasal Cannula 2016 4:42pm Oxygen Flow Rate 1.00 L/min 12/08/2016 8:23am Fraction of Inspired Oxygen (FIO2) 28 % 12/06/2016 10:36pm Blood Pressure 150/68 mm Hg 12/08/2016 3:35pm Blood Pressure Source Automatic Cuff 12/08/2016 3:35pm Height (Feet) 5 feet 2016 9:51pm Height (Inches) 1.00 inches 2016 9:51pm Weight (Kilograms) 90.600 kg 12/06/2016 7:32am Body Mass Index (BMI) 37.1 12/06/2016 12:01am Results Laboratory Results Test Name Result Units Flags Reference Collection Date/Time Result Date/ Time Comments D-Dimer 577 NG/ML H 0-230 11/10/2016 7:11/10/2016 7:29am <230 NG/ ML D-DU=PRESUMPTIVE NEGATIVE FOR PE OR DVT >230 NG/ML D-DU=ADDITIONAL EVAL FOR PE OR DVT RECOMMENDED Total Bilirubin 0.90 MG/DL 0.20-1.30 11/10/2016 7:11/10/2016 7: 37am Alkaline Phosphatase 148 U/L H 38-126 11/10/2016 7:11/10/2016 7: 37am Total Protein 6.4 G/DL 6.3-8.2 11/10/2016 7:11/10/2016 7:37am Globulin 2.9 G/DL 2.4-3.6 11/10/2016 7:11/10/2016 7:37am Albumin/Globulin Ratio 1.2 RATIO 1.1-2.2 11/10/2016 7:11/10/2016 7 :37am Aspartate Amino Transf (AST/SGOT) 34 U/L 14-36 11/10/2016 7:2016 7:37am Alanine Aminotransferase (ALT/SGPT) 33 U/L 9-52 11/10/2016 7:11/10 7:37am Plasma Lactate 1.4 MMOL/L 0.6-2.2 11/10/2016 7:11/10/2016 7:31am Thyroid Stimulating Hormone (TSH) 2.66 MIU/L 0.47-4.68 11/10/2016 7: 11/10/2016 11:08am White Blood Count 8.0 T/MM3 D 4.5-11.0 12/08/2016 4:1612/08/2016 6: 33am Red Blood Count 4.92 M/MM3 4.00-5.20 12/08/2016 4:1612/08/2016 6: 32am Hemoglobin 12.9 GM/DL 12-16 12/08/2016 4:1612/08/2016 6:32am Hematocrit 40.3 % 36-46 12/08/2016 4:12/08/2016 6:32am Mean Corpuscular Volume 81.9 UM3 80-100 12/08/2016 4:12/08/2016 6: 32am Mean Corpuscular Hemoglobin 26.2 UUG 26-34 12/08/2016 4:2016 6:32am Mean Corpuscular Hemoglobin Concent 32.0 GM/DL 31-37 12/08/2016 4:12/08/2016 6:32am RDW Standard Deviation 52.6 FL H 36.9-50.2 12/08/2016 4:12/08/2016 6:32am Platelet Count 240 T/MM3 130-400 12/08/2016 4:12/08/2016 6:32am Mean Platelet Volume 12.4 UM3 9.4-12.4 12/08/2016 4:12/08/2016 6: 32am Neutrophils (%) (Auto) 79.7 % H 33-66 12/08/2016 4:12/08/2016 6: 32am Lymphocytes (%) (Auto) 13.1 % L 23-45 12/08/2016 4:12/08/2016 6: 32am Monocytes (%) (Auto) 6.9 % 0-9.0 12/08/2016 4:12/08/2016 6:32am Eosinophils (%) (Auto) 0.1 % 0-4 12/08/2016 4:12/08/2016 6:32am Basophils (%) (Auto) 0.1 % 0-2 12/08/2016 4:12/08/2016 6:32am Immature Granulocyte % (Auto) 0.1 % 0.0-0.5 12/08/2016 4:2016 6:32am Absolute Neutrophils (auto) 6.3 T/MM3 1.8-7.7 12/08/2016 4:2016 6:32am Absolute Lymphocytes (auto) 1.0 T/MM3 1-4.8 12/08/2016 4:2016 6:32am Absolute Monocytes (auto) 0.6 T/MM3 0-0.8 12/08/2016 4:12/08/2016 6:32am Absolute Eosinophils (auto) 0.0 T/MM3 0-0.5 12/08/2016 4:2016 6:32am Absolute Basophils (auto) 0.0 T/MM3 0-0.2 12/08/2016 4:12/08/2016 6:32am Absolute Immature Granulocyte (auto 0.01 T/MM3 0.00-0.03 12/08/2016 4: 12/08/2016 6:32am Icterus Index < 2 0-7 12/08/2016 4:12/08/2016 5:21am Chemistry Specimen Hemolysis 224 H 0-25 12/08/2016 4:12/08/2016 5 :21am [id number]: Specimen Exhibited Moderate Hemolysis - can falsely elevate K (Potassium), Troponin I, CA 19-9, PTH, CSF Glucose, Urine Protein, and can falsely decrease Phenytoin. Turbidity < 20 0-20 12/08/2016 4:12/08/2016 5:21am Sodium Level 138 MEQ/L 134-144 12/08/2016 4:12/08/2016 5:21am Potassium Level 5.1 MEQ/L D H 3.6-5 12/08/2016 4:12/08/2016 6:36am Chloride Level 107 MEQ/L 98-107 12/08/2016 4:12/08/2016 5:21am Carbon Dioxide Level 25 MEQ/L 22-30 12/08/2016 4:12/08/2016 5: 21am Anion Gap 6 MEQ/L 5-15 12/08/2016 4:12/08/2016 5:21am Blood Urea Nitrogen 41.0 MG/DL H 7-17 12/08/2016 4:12/08/2016 5: 21am Creatinine 0.8 MG/DL D 0.7-1.2 12/08/2016 4:12/08/2016 6:36am BUN/Creatinine Ratio 51 RATIO H 6-12/08/2016 4:12/08/2016 5: 21am Glomerular Filtration Rate Calc 69 12/08/2016 4:1612/08/2016 5: 21am Glucose Level 125 MG/DL H 65-110 12/08/2016 4:12/08/2016 5:21am Calculated Osmolality 277 MOSM/KG 261-280 12/08/2016 4:16am 12/08/2016 5:21am Calcium Level 8.8 MG/DL 8.4-10.2 12/08/2016 4:16am 12/08/2016 5:21am Phosphorus Level 4.2 MG/DL 2.5-4.5 2016 4:51am 2016 6:24am Albumin 3.5 G/DL 3.5-5.0 2016 4:51am 2016 6:24am Cholesterol Level 183 MG/DL 132-199 2016 4:51am 12/11/2016 12: 37am Triglycerides Level 69 MG/DL 35-135 2016 4:51am 12/11/2016 12: 37am HDL Cholesterol Direct 46 MG/DL 40-60 2016 4:51am 12/11/2016 12: 37am LDL Cholesterol, Calculated 123.2 66-159 2016 4:51am 2016 12:37am VLDL Cholesterol 13.8 MG/DL 0-28 2016 4:51am 12/11/2016 12:37am Cholesterol/HDL Ratio 4.0 RATIO 0-4.0 2016 4:51am 12/11/2016 12: 37am Troponin I 0.091 ng/ml 0-0.12 12/06/2016 9:53am 12/06/2016 10:49am Troponin values with a difference of 55% increase from orginal troponin value represent a true biological DELTA value. (%increase Calc=Orginal Troponin value, divided by subsequent Troponin value, multiplied by 100) AE-Qoj-G-Type Natriuretic Peptide 5700 PG/ML H 0-175 12/05/2016 8:49pm 12/05/2016 9:22pm Rule in cut points: <50 years old=450; 50-75 years old=900; >75 years old=1800; When utilizing ProBNP rule-in cut points, adjustment for impaired renal function is typically not required. Magnesium Level 2.4 MG/DL H 1.6-2.3 12/08/2016 4:16am 12/08/2016 5:21am Adenovirus (PCR) NEGATIVE NEGATIVE 12/06/2016 12:22pm 12/06/2016 2: 41pm Coronavirus Type 229E (PCR) NEGATIVE NEGATIVE 12/06/2016 12:22pm 2:41pm Coronavirus Type HKU1 (PCR) NEGATIVE NEGATIVE 12/06/2016 12:22pm 2:41pm Coronavirus Type NL63 (PCR) NEGATIVE NEGATIVE 12/06/2016 12:pm 2:41pm Coronavirus Type OC43 (PCR) NEGATIVE NEGATIVE 12/06/2016 12:22pm 2:41pm Human Metapneumovirus (PCR) NEGATIVE NEGATIVE 12/06/2016 12:22pm 2:41pm Enterovirus/Rhinovirus (PCR) NEGATIVE NEGATIVE 12/06/2016 12:22pm 2:41pm Influenza Virus Type A (PCR) NEGATIVE NEGATIVE 12/06/2016 12:pm 2:41pm Influenza Virus Type B (PCR) NEGATIVE NEGATIVE 12/06/2016 12:pm 2:41pm Parainfluenza Type 1 (PCR) NEGATIVE NEGATIVE 12/06/2016 12:22pm 12/06 2:41pm Parainfluenza Type 2 (PCR) NEGATIVE NEGATIVE 12/06/2016 12:pm 12/06 2:41pm Parainfluenza Type 3 (PCR) NEGATIVE NEGATIVE 12/06/2016 12:22pm 12/06 2:41pm Parainfluenza Type 4 (PCR) NEGATIVE NEGATIVE 12/06/2016 12:pm 12/06 2:41pm Respiratory Syncytial Virus (PCR) NEGATIVE NEGATIVE 12/06/2016 12: 22pm 12/06/2016 2:41pm Bordetella parapertussis DNA (PCR) NEGATIVE NEGATIVE 12/06/2016 12: 22pm 12/06/2016 2:41pm Chlamydia pneumoniae DNA (PCR) NEGATIVE NEGATIVE 12/06/2016 12:22pm 12/06/2016 2:41pm Mycoplasma pneumoniae (PCR) NEGATIVE NEGATIVE 12/06/2016 12:22pm 2:41pm Microbiology Results Procedure Source Organism/Result Collection Date/Time Result Date/Time Result Status Blood Culture Peripheral/Iv Start NO GROWTH AFTER 5 DAYS 11/10/2016 7:05am 11/15/2016 7:18am Final Sputum Culture Sputum, Expectorated Sputum NORMAL UPPER RESPIRATORY SULEIMAN 8:25am 12/09/2016 9:17am Final Procedures Procedure Status Date Provider(s) Neg press wound tx </=50 cm Completed 09/25/16 955355"ADHESIVE BORDER, EACH DRESSING" Completed 09/25/16 Neg press wound tx </=50 cm Completed 09/17/16 [id number]"ADHESIVE BORDER, EACH DRESSING" Completed 09/17/16 Neg press wound tx </=50 cm Completed 09/20/16 [id number]"ADHESIVE BORDER, EACH DRESSING" Completed 09/20/16 Corazon musc/fascia 20 sq cm/< Completed 10/09/16 Neg press wound tx </=50 cm Completed 10/09/16 [id number]"ADHESIVE BORDER, EACH DRESSING" Completed 10/09/16 Neg press wound tx </=50 cm Completed 09/28/16 [id number]"ADHESIVE BORDER, EACH DRESSING" Completed 09/28/16 Neg press wound tx </=50 cm Completed 10/02/16 878511"ADHESIVE BORDER, EACH DRESSING" Completed 10/02/16 Neg press wound tx </=50 cm Completed 10/05/16 [id number]"ADHESIVE BORDER, EACH DRESSING" Completed 10/05/16 [id number]"EQUAL TO 48 SQ. IN., WITHOUT ADHESIVE BORDER, EACH DR Completed [id number] ITEM OR SERVICE Completed 10/12/16 E&M LEVEL - FACILITY Completed 10/12/16 Corazon subq tissue 20 sq cm/< Completed 10/30/16 [id number]"LESS, EACH DRESSING" Completed 10/30/16 112410"ADHESIVE BORDER, EACH DRESSING" Completed 10/30/16 E&M LEVEL - FACILITY Completed 10/17/16 Neg press wound tx </=50 cm Completed 10/16/16 [id number]"ADHESIVE BORDER, EACH DRESSING" Completed 10/16/16 Neg press wound tx </=50 cm Completed 10/19/16 148413"ADHESIVE BORDER, EACH DRESSING" Completed 10/19/16 Neg press wound tx </=50 cm Completed 10/23/16 [id number]"ADHESIVE BORDER, EACH DRESSING" Completed 10/23/16 Neg press wound tx </=50 cm Completed 10/26/16 284376"ADHESIVE BORDER, EACH DRESSING" Completed 10/26/16 Neg press wound tx </=50 cm Completed 11/02/16 265126"ADHESIVE BORDER, EACH DRESSING" Completed 11/02/16 Neg press wound tx </=50 cm Completed 11/06/16 [id number]"ADHESIVE BORDER, EACH DRESSING" Completed 11/06/16 Rmvl devital tis 20 cm/< Completed 11/13/16 [id number]"ADHESIVE BORDER, EACH DRESSING" Completed 11/13/16 Neg press wound tx </=50 cm Completed 11/09/16 [id number]"ADHESIVE BORDER, EACH DRESSING" Completed 11/09/16 Neg press wound tx </=50 cm Completed 11/16/16 [id number]"ADHESIVE BORDER, EACH DRESSING" Completed 11/16/16 Neg press wound tx </=50 cm Completed 11/20/16 Encounters Encounter Location Arrival/Admit Date Discharge/Depart Date Attending Provider Registered [facility] 12/11/16 9:55am ABDOULAYE JONES FACS, MD Discharged Inpatient [facility] 12/05/16 10:59pm 12/08/16 4:25pm PATSY PRADO MD Registered [facility] 12/04/16 10:27am ABDOULAYE JONES FACS, MD Registered [facility] 11/30/16 10:31am ABDOULAYE JONES FACS, MD Registered [facility] 11/27/16 11:27am ABDOULAYE JONES FACS, MD Registered [facility] 11/23/16 10:28am ABDOULAYE JONES FACS, MD Registered [facility] 11/20/16 2:27pm ABDOULAYE JONES FACS, MD Registered [facility] 11/16/16 10:21am ABDOULAYE JONES FACS, MD Registered [facility] 11/13/16 9:32am ABDOULAYE JONES FACS, MD Discharged Inpatient [facility] 11/10/16 10:18am 11/11/16 12: 15pm BERENICE LOPEZ MD Registered [facility] 11/09/16 9:52am ABDOULAYE JONES FACS, MD Registered [facility] 11/06/16 1:53pm ABDOULAYE JONES FACS, MD Registered [facility] 11/02/16 11:24am ABDOULAYE JONES FACS, MD Registered [facility] 10/30/16 11:03am ABDOULAYE JONES FACS, MD Registered [facility] 10/26/16 11:26am ABDOULAYE JONES FACS, MD Registered [facility] 10/23/16 1:56pm ABDOULAYE JONES FACS, MD Registered [facility] 10/19/16 10:27am ABDOULAYE JONES FACS, MD Registered [facility] 10/17/16 9:58am DALLAS BLACK MD Registered [facility] 10/16/16 2:26pm ABDOULAYE JONES FACS, MD Registered [facility] 10/12/16 10:19am ABDOULAYE JONES FACS, MD Registered [facility] 10/09/16 10:25am ABDOULAYE JONES FACS, MD Registered [facility] 10/05/16 10:59am ABDOULAYE JONES FACS, MD Registered [facility] 10/02/16 1:28pm ABDOULAYE JONES FACS, MD Registered [facility] 09/28/16 10:25am ABDOULAYE JONES FACS, MD Registered [facility] 09/25/16 10:54am ABDOULAYE JONES FACS, MD Registered [facility] 09/20/16 3:25pm ABDOULAYE JONES FACS, MD Registered [facility] 09/17/16 10:57am ABDOULAYE JONES FACS, MD
--- OUTSIDE RECORDS SUMMARY | 2017-02-07 09:40 | XMS REPORT | Continuity of Care Document ---
Author Author [facility] Organization [facility] Address Unknown Phone Unavailable Allergies Medications Problems Procedures Results Encounters ACCT No. Visit Date/Time Discharge Status Pt. Type Provider Facility Loc./Unit Complaint [id number] 01/11/2014 10:34:00 01/11/2014 23 :59:59 CLS Outpatient [id number] 12/16/2013 08:42:00 12/16/2013 23 :59:59 CLS Outpatient [id number] 12/10/2013 12:52:00 12/10/2013 23 :59:59 CLS Outpatient [id number] 12/01/2013 10:16:00 12/01/2013 23 :59:59 CLS Outpatient [id number] 11/19/2013 15:37:00 11/19/2013 23 :59:59 CLS Outpatient
--- OUTSIDE RECORDS SUMMARY | 2017-02-07 09:42 | XMS REPORT | Referral Summary ---
Author Author [facility], [facility] Organization [facility] Address Unknown Phone Unavailable Care Team Providers Care Bottling Attendant Name Role Phone Bradley Acevedo Primary Care Physician [phone] Encounter VC Date(s): 08/07/16 - 08/07/16 [facility] [place] [id number]- Discharge Disposition: 01-Home or Self Care Attending Physician: Eliu Acevedo MD Admitting Physician: Eliu Acevedo MD Vital Signs Most recent to 1 oldest [Reference Range]: Blood Pressure 126/64 mmHg [90-140/60-90 mmHg] (08/07/16 1:31 PM) Problem List Condition Effective Dates Status Health Status Informant Acute Active pain(Confirmed) At risk for Active injury(Confirmed)1 Bronchiectasis(Confi Active rmed) Cardiomyopathy, Active nonischemic(Confirme d) Congestive heart Active failure(Confirmed) Disease/gallbladder( 2009 Active Confirmed) Disease/hydrodistent 2012 Active ion of bladder(Confirmed) Thyroid Active disease(Confirmed) GERD Active (gastroesophageal reflux disease)(Confirmed) Gout(Confirmed) Active [...] Daily, # 90 tabs, 0 Refill(s), Pharmacy: [id number], 0.5 tabs Oral Daily Start Date: 07/27/16 Status: Ordered aspirin 81 mg, Oral, Daily, 0 Refill(s) Start Date: 07/10/16 Status: Ordered Centrum Silver 1 tabs, Daily, 0 Refill(s) Start Date: 04/12/14 Status: Ordered ciprofloxacin 500 mg oral tablet 500 mg 1 tabs, Oral, q12hr, X 35 days, 0 Refill(s) Start Date: 07/10/16 Stop Date: 08/13/16 Status: Ordered Co Q-10 100 mg, Oral, Daily, 0 Refill(s) Start Date: 04/12/14 Status: Ordered furosemide 40 mg oral tablet 1 tabs, Oral, Daily, # 30 tabs, 0 Refill(s) Start Date: 04/12/14 Status: Ordered glucosamine-chondroitin oral kit 1 tabs, Oral, Daily, 0 Refill(s) Start Date: 04/12/14 Status: Ordered Klor-Con M20 2 caps, Oral, Daily, 0 Refill(s) Start Date: 04/12/14 Status: Ordered magnesium oxide 250 mg, Oral, BID, 0 Refill(s) Start Date: 04/12/14 Status: Ordered omeprazole 20 mg oral delayed release capsule See Instructions, TAKE ONE CAPSULE BY MOUTH ONCE DAILY, # 30 caps, eRx: [id number], TAKE ONE CAPSULE BY MOUTH ONCE DAILY Start Date: 07/25/16 Status: Ordered ProAir HFA 90 mcg/inh inhalation aerosol 1 puffs, Inhalation, QID, as needed for wheezing, # 8.5 g, 0 Refill(s) Start Date: 02/01/16 Status: Ordered Refresh 2 drops, Eye-Both, Daily, 0 Refill(s) Start Date: 02/04/16 Status: Ordered sotalol 80 mg, Oral, BID, 0 Refill(s) Start Date: 03/06/16 Status: Ordered Vitamin D3 400 intl units oral tablet 400 Intl_Units 1 tabs, Oral, Daily, 0 Refill(s) Start Date: 04/12/14 Status: Ordered Voltaren 1% topical gel 1 berenice, Topical, QID, # 100 g, 3 Refill(s) Start Date: 02/05/16 Stop Date: 06/04/16 Status: Ordered Zoloft 50 mg oral tablet 50 mg 1 tabs, Oral, Daily, # 30 tabs, 1 Refill(s), Pharmacy: [id number], 1 tabs Oral Daily Start Date: 07/16/16 Status: Ordered Results Chemistry Most recent to 1 oldest [Reference Range]: Sodium Lvl [135-144 140 mEq/L mEq/L] (08/07/16 2:26 PM) Potassium Lvl 3.7 mEq/L [3.5-5.2 mEq/L] (08/07/16 2:26 PM) Chloride [99-111 105 mEq/L mEq/L] (08/07/16 2:26 PM) CO2 [22-31 mEq/L] 28 mEq/L (08/07/16 2:26 PM) AGAP [3-20] 7 (08/07/16 2:26 PM) BUN [10-20 mg/dL] 18 mg/dL (08/07/16 2:26 PM) Glucose Lvl [70-99 98 mg/dL mg/dL] (08/07/16 2:26 PM) Creatinine Lvl 0.99 mg/dL [0.57-1.11 mg/dL] (08/07/16 2:26 PM) eGFR [>60 mL/min] 54 mL/min 1 *ABN* (08/07/16 2:26 PM) Calcium Lvl 9.1 mg/dL [8.9-10.5 mg/dL] (08/07/16 2:26 PM) Albumin Lvl [3.4-4.8 3.5 gm/dL gm/dL] (08/07/16 2:26 PM) Total Protein 5.6 gm/dL [6.0-7.6 gm/dL] *LOW* (08/07/16 2:26 PM) Globulin [1.8-4.0 2.1 gm/dL gm/dL] (08/07/16 2:26 PM) ALT [0-55 U/L] 52 U/L (08/07/16 2:26 PM) AST [5-34 U/L] 70 U/L *HI* (08/07/16 2:26 PM) Alk Phos [40-150 304 U/L U/L] *HI* (08/07/16 2:26 PM) Bili Total [0.2-1.2 0.4 mg/dL mg/dL] (08/07/16 2:26 PM) Lipase Lvl [8-78 59 U/L U/L] (08/07/16 2:26 PM) 1Result Comment: Multiply eGFR results by 1.21 for race. Immunizations Vaccine Date Refusal Reason influenza virus vaccine, inactivated 07/27/15 influenza virus vaccine, inactivated1 08/04/14 influenza virus vaccine, live 07/21/13 influenza virus vaccine, live 08/13/12 1Location History: See scanned document Procedures Procedure Date Related Diagnosis Body Site Colonoscopy/normal,likely not need to repeat 2012 unless symptoms warrant1 Esophagogastroduodenoscopy2 2012 Calibration of urethra and dilatation 2011 Cystoscopy 2011 Pelvic examination/bimanual 2012 Procedure/SLT Laser vaporization 2012 Removal/port a cath 2011 Replacement/right knee 2010 Esophagogastroduodenoscopy 2009 Replacement/left knee 2009 Colonoscopy/normal/repeat in 10 years3 2007 Hospital admission/CHF 07/2007 Mastectomy/left4 2002 Port-a-cath in place 2002 Hysterectomy,BSO 1970 Appendectomy CPAP - Continuous positive airways pressure 1normal, not need to repeat unless symptoms warrant, due to age. 2hyperplastic gastric mucosa 3normal, repeat in 10 years 4left Social History Social History Type Response Smoking Status Never smoker Assessment and Plan No data available for this section
--- OUTSIDE RECORDS SUMMARY | 2017-02-07 09:42 | XMS REPORT | Referral Summary ---
Author Author [facility], [facility] Organization [facility] Address Unknown Phone Unavailable Care Team Providers Care Die Maker Bench Stamping Name Role Phone Bradley Acevedo Primary Care Physician [phone] Encounter Date(s): 10/17/16 - 10/17/16 [facility] [place] [place] [id number]- Discharge Diagnosis: Pulmonary fibrosis Discharge Diagnosis: Congestive heart failure Discharge Diagnosis: Dysphagia Discharge Diagnosis: Dyspnea on exertion Discharge Disposition: 01-Home or Self Care Attending Physician: Bruna Carballo PA-C Admitting Physician: Bruna Carballo PA-C Vital Signs Most recent to 1 oldest [Reference Range]: Temperature Tympanic 36.1 degC [36.6-38.1 degC] *LOW* (10/17/16 1:02 PM) Peripheral Pulse 86 bpm Rate [60-100 bpm] (10/17/16 1:02 PM) Blood Pressure 114/70 mmHg [90-140/60-90 mmHg] (10/17/16 1:02 PM) SpO2 96 % (10/17/16 1:02 PM) Problem List Condition Effective Dates Status [...] Active cancer(Confirmed)2 Elevated 2007 Active CEA(Confirmed) Elevated 2012 Active CEA(Confirmed) Dermatophytosis of Active nail(Confirmed) Osteoarthritis(Confi [...] Daily, # 90 tabs, 0 Refill(s), Pharmacy: [id number], 0.5 tabs Oral Daily Start Date: 07/27/16 Status: Ordered aspirin 81 mg, Oral, Daily, 0 Refill(s) Start Date: 07/10/16 Status: Ordered Centrum Silver 1 tabs, Daily, 0 Refill(s) Start Date: 04/12/14 Status: Ordered Co Q-10 100 mg, Oral, Daily, 0 Refill(s) Start Date: 04/12/14 Status: Ordered doxycycline hyclate 100 mg, Oral, BID, Wound Care, 0 Refill(s) Start Date: 09/07/16 Stop Date: 10/07/16 Status: Ordered furosemide 40 mg oral tablet [...] MOUTH ONCE DAILY, # 30 caps, eRx: [id number], TAKE ONE CAPSULE BY MOUTH ONCE DAILY Start Date: 09/27/16 Status: Ordered ProAir HFA 90 mcg/inh inhalation aerosol 1 puffs, Inhalation, QID, as needed for wheezing, # 8.5 g, 0 Refill(s) Start Date: 02/01/16 Status: Ordered Refresh 2 drops, Eye-Both, Daily, 0 Refill(s) Start Date: 02/04/16 Status: Ordered sertraline 50 mg oral tablet See Instructions, TAKE ONE TABLET BY MOUTH ONCE DAILY, # 30 tabs, 5 Refill(s), eRx: [id number], TAKE ONE TABLET BY MOUTH [...] and dilatation 2011 Cystoscopy 2011 Pelvic examination/bimanual 2011 Procedure/SLT Laser vaporization 2011 Removal/port a cath 2010 Replacement/right knee 2010 Esophagogastroduodenoscopy 2009 Replacement/left knee 2009 Colonoscopy/normal/repeat in 10 years3 2008 Hospital admission/CHF 07/2007 Mastectomy/left4 2002 Port-a-cath in place 2003 Hysterectomy,BSO 1970 Appendectomy CPAP - Continuous positive airways pressure 1normal, not need to repeat unless symptoms warrant, due to age. 2hyperplastic gastric mucosa 3normal, repeat in 10 years 4left Social History Social History Type Response Smoking Status Never smoker Assessment and Plan Extracted from: Title: Office Visit Note- SOA, Author: Bruna Carballo PA-C Date: Dysphagia Assessment/Plan Congestive heart failure She does not appear to be in failure at this time. Recommend Echo with Dr. Delacruz as scheduled in January. Ordered: Office Visit Level 4 Est 99941 Dysphagia D/w that I would like to order abarium swallow study,however, I do want to work up her SOA first. She voiced understanding and agreed. Ordered: Office Visit Level 4 Est 80201 Dyspnea on exertion The pt did qualify for ambulatory O2. Order form was filled out and faxed to [facility]. Will also get a CXR today. She does need to see Pulmonology, which may be difficult. Can see if there is another amalgamator in [facility], otherwise, she will need to go to [place]. Ordered: Office Visit Level 4 Est 43338 XR Chest 2 Views Pulmonary fibrosis Again, needs to see Pulm. Ordered: Office Visit Level 4 Est 26355 Addendum by Pt's resting O2 was 96% on RA. Ambulatory O2 sat was 88% on RA. Ambulatory O2Sat on 2L of [place], O2 per nasal cannula was 91%. Bruna Nieto PA-C on October 17, 2016 15:33:35 [employer]
--- OUTSIDE RECORDS SUMMARY | 2017-02-07 09:43 | XMS REPORT | Referral Summary ---
Author Author [facility] [place], [facility] Organization [facility] Arce[facility] Address Unknown Phone Unavailable Care Team Providers Care Fire Protection Specialist Name Role Phone Bradley Acevedo Primary Care Physician [phone] Encounter VC Date(s): 11/26/16 - 11/26/16 [facility] [place], [address] [place] [id number]- Discharge Diagnosis: Acute eczema Discharge Diagnosis: Congestive heart failure Discharge Disposition: 01-Home or Self Care Attending Physician: Eliu Acevedo MD Admitting Physician: Eliu Acevedo MD Vital Signs Most recent to 1 oldest [Reference Range]: Temperature Tympanic 36.9 degC [36.6-38.1 degC] (11/26/16 9:42 AM) Blood Pressure 136/72 mmHg [90-140/60-90 mmHg] (11/26/16 9:42 AM) Problem List Condition Effective Dates Status Health [...] Daily, # 90 tabs, 0 Refill(s), Pharmacy: [id number], 0.5 tabs Oral Daily Start Date: 07/27/16 Status: Ordered aspirin 81 mg, Oral, Daily, 0 Refill(s) Start Date: 07/10/16 Status: Ordered Centrum Silver 1 tabs, Daily, 0 Refill(s) Start Date: 04/12/14 Status: Ordered clobetasol 0.05% topical cream 1 berenice, Topical, BID, # 30 g, 0 Refill(s), Pharmacy: [id number] Start Date: 11/26/16 Stop Date: 12/06/16 Status: Ordered Co Q-10 100 mg, Oral, [...] smoker Assessment and Plan Extracted from: Title: Ambulatory Patient Education Author: Eliu Acevedo MD Date: 11/26 Cardiovascular Heart Failure Heart failure is a condition in which the heart has trouble pumping blood. This means your heart does not pump blood efficiently for your body to work well. In some cases of heart failure, fluid may back up into your lungs or you may have swelling (edema) in your lower legs. Heart failure is usually a long-term ( chronic) condition. It is important for you to take good care of yourself and follow your health care provider's treatment plan. CAUSES Some health conditions can cause heart failure. Those health conditions include: High blood pressure (hypertension). Hypertension causes the heart muscle to work harder than normal. When pressure in the blood vessels is high, the heart needs to pump (contract) with more force in order to circulate blood throughout the body. High blood pressure eventually causes the heart to become stiff and weak. Coronary artery disease (CAD). CAD is the buildup of cholesterol and fat (plaque) in the arteries of the heart. The blockage in the arteries deprives the heart muscle of oxygen and blood. This can cause chest pain and may lead to a heart attack. High blood pressure can also contribute to CAD. Heart attack (myocardial infarction). A heart attack occurs when one or more arteries in the heart become blocked. The loss of oxygen damages the muscle tissue of the heart. When this happens, part of the heart muscle dies. The injured tissue does not contract as well and weakens the heart's ability to pump blood. Abnormal heart valves. When the heart valves do not open and close properly, it can cause heart failure. This makes the heart muscle pump harder to keep the blood flowing. Heart muscle disease (cardiomyopathy or myocarditis). Heart muscle disease is damage to the heart muscle from a variety of causes. These can include drug or alcohol abuse, infections, or unknown reasons. These can increase the risk of heart failure. Lung disease. Lung disease makes the heart work harder because the lungs do not work properly. This can cause a strain on the heart, leading it to fail. Diabetes. Diabetes increases the risk of heart failure. High blood sugar contributes to high fat (lipid) levels in the blood. Diabetes can also cause slow damage to tiny blood vessels that carry important nutrients to the heart muscle. When the heart does not get enough oxygen and food, it can cause the heart to become weak and stiff. This leads to a heart that does not contract efficiently. Other conditions can contribute to heart failure. These include abnormal heart rhythms, thyroid problems, and low blood counts (anemia). Certain unhealthy behaviors can increase the risk of heart failure, including: Being overweight. Smoking or chewing tobacco. Eating foods high in fat and cholesterol. Abusing illicit drugs or alcohol. Lacking physical activity. SYMPTOMS Heart failure symptoms may vary and can be hard to detect. Symptoms may include: Shortness of breath with activity, such as climbing stairs. Persistent cough. Swelling of the feet, ankles, legs, or abdomen. Unexplained weight gain. Difficulty breathing when lying flat (orthopnea). Waking from sleep because of the need to sit up and get more air. Rapid heartbeat. Fatigue and loss of energy. Feeling light-headed, dizzy, or close to fainting. Loss of appetite. Nausea. Increased urination during the night (nocturia). DIAGNOSIS A diagnosis of heart failure is based on your history, symptoms, physical examination, and diagnostic tests. Diagnostic tests for heart failure may include: Echocardiography. Electrocardiography. Chest X-ray. Blood tests. Exercise stress test. Cardiac angiography. Radionuclide scans. TREATMENT Treatment is aimed at managing the symptoms of heart failure. Medicines, behavioral changes, or surgical intervention may be necessary to treat heart failure. Medicines to help treat heart failure may include: Angiotensin-converting enzyme (SUKI) inhibitors. This type of medicine blocks the effects of a blood protein called angiotensin-converting enzyme. SUKI inhibitors relax (dilate) the blood vessels and help lower blood pressure. Angiotensin receptor blockers (ARBs). This type of medicine blocks the actions of a blood protein called angiotensin. Angiotensin receptor blockers dilate the blood vessels and help lower blood pressure. Water pills (diuretics). Diuretics cause the kidneys to remove salt and water from the blood. The extra fluid is removed through urination. This loss of extra fluid lowers the volume of blood the heart pumps. Beta blockers. These prevent the heart from beating too fast and improve heart muscle strength. Digitalis. This increases the force of the heartbeat. Healthy behavior changes include: Obtaining and maintaining a healthy weight. Stopping smoking or chewing tobacco. Eating heart-healthy foods. Limiting or avoiding alcohol. Stopping illicit drug use. Physical activity as directed by your health care provider. Surgical treatment for heart failure may include: A procedure to open blocked arteries, repair damaged heart valves, or remove damaged heart muscle tissue. A pacemaker to improve heart muscle function and control certain abnormal heart rhythms. An internal cardioverter defibrillator to treat certain serious abnormal heart rhythms. A left ventricular assist device (LVAD) to assist the pumping ability of the heart. HOME CARE INSTRUCTIONS Take medicines only as directed by your health care provider. Medicines are important in reducing the workload of your heart, slowing the progression of heart failure, and improving your symptoms. Do not stop taking your medicine unless directed by your health care provider. Do not skip any dose of medicine. Refill your prescriptions before you run out of medicine. Your medicines are needed every day. Engage in moderate physical activity if directed by your health care provider. Moderate physical activity can benefit some people. The elderly and people with severe heart failure should consult with a health care provider for physical activity recommendations. Eat heart-healthy foods. Food choices should be free of trans fat and low in saturated fat, cholesterol, and salt (sodium). Healthy choices include fresh or frozen fruits and vegetables, fish, lean meats, legumes, fat-free or low-fat dairy products, and whole grain or high fiber foods. Talk to a dietitian to learn more about heart-healthy foods. Limit sodium if directed by your health care provider. Sodium restriction may reduce symptoms of heart failure in some people. Talk to a dietitian to learn more about heart-healthy seasonings. Use healthy cooking methods. Healthy cooking methods include roasting, grilling, broiling, baking, poaching, steaming, or stir-frying. Talk to a dietitian to learn more about healthy cooking methods. Limit fluids if directed by your health care provider. Fluid restriction may reduce symptoms of heart failure in some people. Weigh yourself every day. Daily weights are important in the early recognition of excess fluid. You should weigh yourself every morning after you urinate and before you eat breakfast. Wear the same amount of clothing each time you weigh yourself. Record your daily weight. Provide your health care provider with your weight record. Monitor and record your blood pressure if directed by your health care provider. Check your pulse if directed by your health care provider. Lose weight if directed by your health care provider. Weight loss may reduce symptoms of heart failure in some people. Stop smoking or chewing tobacco. Nicotine makes your heart work harder by causing your blood vessels to constrict. Do not use nicotine gum or patches before talking to your health care provider. Keep all follow-up visits as directed by your health care provider. This is important. Limit alcohol intake to no more than 1 drink per day for non women and 2 drinks per day for men. One drink equals 12 ounces of beer, 5 ounces of wine, or 1 ounces of hard liquor. Drinking more than that is harmful to your heart. Tell your health care provider if you drink alcohol several times a week. Talk with your health care provider about whether alcohol is safe for you. If your heart has already been damaged by alcohol or you have severe heart failure, drinking alcohol should be stopped completely. Stop illicit drug use. Stay up-to-date with immunizations. It is especially important to prevent respiratory infections through current pneumococcal and influenza immunizations. Manage other health conditions such as hypertension, diabetes, thyroid disease, or abnormal heart rhythms as directed by your health care provider. Learn to manage stress. Plan rest periods when fatigued. Learn strategies to manage high temperatures. If the weather is extremely hot: Avoid vigorous physical activity. Use air conditioning or fans or seek a cooler location. Avoid caffeine and alcohol. Wear loose-fitting, lightweight, and light-colored clothing. Learn strategies to manage cold temperatures. If the weather is extremely cold: Avoid vigorous physical activity. Layer clothes. Wear mittens or gloves, a hat, and a scarf when going outside. Avoid alcohol. Obtain ongoing education and support as needed. Participate in or seek rehabilitation as needed to maintain or improve independence and quality of life. SEEK MEDICAL CARE IF: You have a rapid weight gain. You have increasing shortness of breath that is unusual for you. You are unable to participate in your usual physical activities. You tire easily. You cough more than normal, especially with physical activity. You have any or more swelling in areas such as your hands, feet, ankles, or abdomen. You are unable to sleep because it is hard to breathe. You feel like your heart is beating fast (palpitations). You become dizzy or light-headed upon standing up. SEEK IMMEDIATE MEDICAL CARE IF: You have difficulty breathing. There is a change in mental status such as decreased alertness or difficulty with concentration. You have a pain or discomfort in your chest. You have an episode of fainting (syncope). MAKE SURE YOU: Understand these instructions. Will watch your condition. Will get help right away if you are not doing well or get worse. This information is not intended to replace advice given to you by your health care provider. Make sure you discuss any questions you have with your health care provider. Document Released: 10/07/2006 Document Revised: 02/21/2016 Document Reviewed: [employer] Interactive Patient Education 2016 [employer] Immunology Eczema Eczema, also called atopic dermatitis, is a skin disorder that causes inflammation of the skin. It causes a red rash and dry, scaly skin. The skin becomes very itchy. Eczema is generally worse during the cooler winter months and often improves with the warmth of summer. Eczema usually starts showing signs in infancy. Some children outgrow eczema, but it may last through adulthood. CAUSES The exact cause of eczema is not known, but it appears to run in families. People with eczema often have a family history of eczema, allergies, asthma, or hay fever. Eczema is not contagious. Flare-ups of the condition may be caused by: Contact with something you are sensitive or allergic to. Stress. SIGNS AND SYMPTOMS Dry, scaly skin. Red, itchy rash. Itchiness. This may occur before the skin rash and may be very intense. DIAGNOSIS The diagnosis of eczema is usually made based on symptoms and medical history. TREATMENT Eczema cannot be cured, but symptoms usually can be controlled with treatment and other strategies. A treatment plan might include: Controlling the itching and scratching. Use agzd-zij-nocwtqi antihistamines as directed for itching. This is especially useful at night when the itching tends to be worse. Use fstm-ybs-kymhnpu steroid creams as directed for itching. Avoid scratching. Scratching makes the rash and itching worse. It may also result in a skin infection (impetigo) due to a break in the skin caused by scratching. Keeping the skin well moisturized with creams every day. This will seal in moisture and help prevent dryness. Lotions that contain alcohol and water should be avoided because they can dry the skin. Limiting exposure to things that you are sensitive or allergic to ( allergens). Recognizing situations that cause stress. Developing a plan to manage stress. HOME CARE INSTRUCTIONS Only take bfrv-dpl-betlklt or prescription medicines as directed by your health care provider. Do not use anything on the skin without checking with your health care provider. Keep baths or showers short (5 minutes) in warm (not hot) water. Use mild cleansers for bathing. These should be unscented. You may add nonperfumed bath oil to the bath water. It is best to avoid soap and bubble bath. Immediately after a bath or shower, when the skin is still damp, apply a moisturizing ointment to the entire body. This ointment should be a petroleum ointment. This will seal in moisture and help prevent dryness. The thicker the ointment, the better. These should be unscented. Keep fingernails cut short. Children with eczema may need to wear soft gloves or mittens at night after applying an ointment. Dress in clothes made of cotton or cotton blends. Dress lightly, because heat increases itching. A child with eczema should stay away from anyone with fever blisters or cold sores. The virus that causes fever blisters (herpes simplex) can cause a serious skin infection in children with eczema. SEEK MEDICAL CARE IF: Your itching interferes with sleep. Your rash gets worse or is not better within 1 week after starting treatment. You see pus or soft yellow scabs in the rash area. You have a fever. You have a rash flare-up after contact with someone who has fever blisters. This information is not intended to replace advice given to you by your health care provider. Make sure you discuss any questions you have with your health care provider. Document Released: 10/04/2001 Document Revised: 07/28/2014 Document Reviewed: [employer] Interactive Patient Education 2016 [employer] No follow up information was provided. Extracted from: Title: Office Visit Note Author: Eliu Acevedo MD Date: 11/26/16 Assessment/Plan 1.Acute eczema Rx for Clobetasol 0.05% cream to apply sparingly twice daily.She is to find out from her eye doctor if she can take Benadryl since she has glaucoma. Ordered: Office Visit Level 3 Est 48054 2.Congestive heart failure Continue with the current medications and follow up with the Dental Resident. Ordered: Office Visit Level 3 Est 83704
[2017-02-07 10:03] LABS: BASOPHILS % (AUTO) 0.4 % (0-2); EOSINOPHILS # (AUTO) 0.3 T/MM3 (0-0.5); EOSINOPHILS % (AUTO) 4.7 % (0-4); HCT - HEMATOCRIT 44.4 % (36-46); HGB - HEMOGLOBIN 14.3 GM/DL (12-16); IMMATURE GRANULOCYTE # (AUTO) 0.02 T/MM3 (0.00-0.03); IMMATURE GRANULOCYTE % (AUTO) 0.3 % (0.0-0.5); LYMPHOCYTES # (AUTO) 2.1 T/MM3 (1-4.8); MEAN CORPUSCULAR HGB 26.3 UUG (26-34); MEAN CORPUSCULAR HGB CONC(MCHC 32.2 GM/DL (31-37); MEAN CORPUSCULAR VOLUME 81.6 UM3 (80-100); MEAN PLATELET VOLUME 11.2 UM3 (9.4-12.4); MONOCYTES # (AUTO) 0.6 T/MM3 (0-0.8); MONOCYTES % (AUTO) 8.7 % (0-9.0); NEUTROPHILS #(AUTO)-ABSOLUTE 3.7 T/MM3 (1.8-7.7); NEUTROPHILS % (AUTO) 54.9 % (33-66); RED BLOOD COUNT 5.44 M/MM3 (4.00-5.20); WBC - WHITE BLOOD COUNT 6.8 T/MM3 (4.5-11.0)
[2017-02-07 10:11] LABS: ALBUMIN 3.8 G/DL (3.5-5.0); ALBUMIN/GLOBULIN RATIO 1.2 RATIO (1.1-2.2); ALKALINE PHOSPHATASE 169 U/L (38-126); ALT (SGPT) 34 U/L (9-52); ANION GAP 12 MEQ/L (5-15); AST (SGOT) 38 U/L (14-36); BUN/CREATININE RATIO 24 RATIO (6-26); CALCIUM 9.7 MG/DL (8.4-10.2); CHLORIDE 104 MEQ/L (98-107); CO2 - CARBON DIOXIDE 30 MEQ/L (22-30); CREATININE 1.1 MG/DL (0.7-1.2); GLOMERULAR FILTRATION RATE 48; GLUCOSE 117 MG/DL (65-110); POTASSIUM 3.7 MEQ/L (3.6-5); SODIUM 146 MEQ/L (134-144)
[2017-02-07] MEDS ORDERED: FENTANYL 250mcg/5ml INJECTION ONE (11:35)
[2017-02-07] MEDS ORDERED: ROCURONIUM 50mg/5ml INJECTION IV ONE (11:35)
[2017-02-07] MEDS ORDERED: PROPOFOL 200mg 20 ML IV ONE (11:35)
[2017-02-07] MEDS ORDERED: LIDOCAINE (2%) 100 MG/5 ML PF SYRINGE IV ONE (11:35)
[2017-02-07] MEDS ORDERED: PROPOFOL 500mg 50 ML IV ONE (11:39)
[2017-02-07] MEDS ORDERED: PHENYLEPHRINE 10mg/ml INJECTION ONE (12:07)
[2017-02-07] MEDS ORDERED: SALINE FLUSH 10ml SYRINGE ONE (12:07)
[2017-02-07] MEDS ORDERED: CEFAZOLIN 1 GRAM INJECTION IV ONE (12:15)
--- NOTE | 2017-02-07 12:44 | ANESPREOP ---
Anesthesia Record Date and Time DATE: 02/07/17 TIME: 12:41 Proposed Surgical Procedure SPLIT THICKNESS SKIN GRAFT LEFT CHEST NPO since: 02/06/17 Allergies: Coded Allergies: Sulfa (Sulfonamide Antibiotics) (Verified Allergy, Intermediate, NAUSEA, VOMIT, 02/07/17) morphine (Verified Allergy, Intermediate, SHORTNESS OF BREATH, 02/07/17) anxiety also affected gallbladder adhesive tape (Verified Allergy, Unknown, 02/07/17) Ht/Wt/BMI Height: 5 ' 1.00 " Weight: 88.700 kg BMI: 37.0 kg/m2 Vital Signs Date Time Temp Pulse Resp B/P Pulse Ox O2 Delivery O2 Flow Rate FiO2 02/07/17 09:46 98.2 99 16 119/77 91 Room Air Medications Inpatient Medications Current Medications Medications (Trade) Dose Ordered Sig/Niesha Start Time Stop Time Status Last Admin Dose Admin Sodium Chloride (Normal Saline IV) 1,000 ml @ 50 mls/hr Q20H PRN 02/07/17 07:00 02/07/17 10:20 50 MLS/HR Albuterol Sulfate (Proair HFA 90 mcg/actuation) 8.5 Gm Hfa.aer.ad, 2 PUFF INH BIDPRN, (Reported) Last Taken: on 02/07/17 0800 Allopurinol (Allopurinol) 300 Mg Tablet, 150 MG PO DAILY, (Reported) Last Taken: on 02/06/17 0830 Atorvastatin Calcium (Lipitor) 40 Mg Tablet, 40 MG PO HS Last Taken: on 02/05/171929 Cholecalciferol (Vitamin D3) (Vitamin D3) 400 Unit Capsule, 400 UNIT PO QD, (Reported) Last Taken: on 02/06/17829 Clobetasol Propionate (Clobetasol Propionate) 15 Gm Cream..g., 1 APPLIC BID, (Reported) Last Taken: on 01/07/17 Diclofenac Sodium (Voltaren) 100 Gm Gel..gram., 1 APPLIC TOP PRN, (Reported) Last Taken: on 12/10/16 Docusate Sodium (Docusate Sodium) 100 Mg Capsule, 100 MG PO DAILY, (Reported) Last Taken: on 02/06/17 0830 Furosemide (Furosemide) 40 Mg Tablet, 40 MG PO DAILY, (Reported) Last Taken: on 02/06/171929 Hydrocodone/Acetaminophen ([place] 5-325 Tablet) 5-325 Tablet, 1 TAB PO Q6H PRN for PAIN Last Taken: on 11/09/16 Ipratropium/Albuterol Sulfate (Iprat-Albut 0.5-3( 2.5) mg/3 ml) 3 Ml Ampul.neb, 3 ML AEROSOL QID PRN for SHORTNESS OF AIR/WHEEZING Diagnosis: J 44.9 Last Taken: on 02/07/17 0800 Magnesium Oxide (Magnesium) 250 Mg Tablet, 250 MG PO HS, (Reported) Last Taken: on 02/06/17 193 Multivitamins W-Minerals/Lut (Centrum Silver Tablet) 1 Tab Tablet, 1 TAB PO DAILY, (Reported) Last Taken: on 02/06/17829 Omeprazole (Omeprazole) 20 Mg Capsule.dr, 20 MG PO DAILY, (Reported) Last Taken: on 02/07/17 08 Potassium Chloride (Klor-Con M20) 20 Meq Tablet , 40 MEQ PO QD, (Reported) Last Taken: on 02/06/17 0830 Rivaroxaban (Xarelto) 20 Mg Tablet, 1 TAB PO DAILY, (Reported) Last Taken: on 02/04/17 Sotalol HCl (Betapace) 80 Mg Tablet, 80 MG PO ACBID , (Reported) Last Taken: on 02/07/17 0800 Ubidecarenone (Co Q-10) 200 Mg Capsule, 200 MG PO DAILY, (Reported) Last Taken: on 02/06/17 0830 Discontinued Medications Dabigatran Etexilate Mesylate (Pradaxa) 150 Mg Capsule, 150 MG PO BID Discontinued Reason: Medication Stopped Lisinopril (Lisinopril) 5 Mg Tablet, 5 MG PO DAILY Discontinued Reason: Medication Stopped Currently on Beta Geremias: Yes Beta Geremias Last Taken: sotalol at 0800 on 02/07/17 Medical/Surgical History Anesthesia PMH: Reports: *Angina (non cardiac - per pt), *Dyspnea (WITH EXERTION ), *Hypertension, Anesthesia Reactions (NAUSEA, SLOW TO AWAKEN, NO AIRWAY ISSUES), Arthritis (OA,GOUT), CHF, COPD (PULMONARY FIBROSIS- LEFT LUNG), Cancer (LEFT BREAST, BCC ON NOSE-REMOVED ), Cardiac Arrythmia (history of Afib. ASA only ), Glaucoma (LUCIA BEGINNING STAGES), Headaches (TEMPORALITIS ), Hiatal Hernia, Pneumonia (hx of ), Reflux, Renal Disease (CKD PER H&P-PT DENIES) , Sleep Apnea, Thyroid Disease (told she had hypothyroidism, but no meds) Smoking Status: Never smoker Use Chewing Tobacco?: No Substance Use Type: does not use Past Surgical History Orthopedic Surgeries: Yes - LUCIA TKR Abdominal Surgeries: Yes - APPY; ROBERTA Genitourinary Surgeries: No Cardiac Surgeries: Yes - HEART CATH PER H&P Endocrine Surgeries: No Reproductive Surgeries: Yes - HYST/BSO, L MASTECTOMY Neurological Surgeries: No Ear Surgeries: Yes - EXC ACOUSTIC NEUROMA RIGHT EAR Nose Surgeries: No Throat Surgeries: No Other Surgeries: Yes - INSERT/REMOVE PORT A CATH & REMOVAL COLONOSCOPY, BCC EXCISED, EGD,SKIN GR Anesthesia Adverse Reactions: FOUND none Family Hx of Anesthesia Advers: none Pertinent Findings Laboratory Tests 02/07/17 09:55 EKG Rhythm: Atrial Fibrillation Physical Exam Respiratory: Bilat breath sounds equal, Lungs clear Cardiovascular: FOUND Irregularly irregular Airway Assessment Mallampati Score: II TMD: 3 Fingerbreadths Neck Extension: Good Teeth: Chipped Teeth/Crowns ASA: 3 Plan Anesthesia Plan: TIVA Discussion Discussed risks/options/alternatives of anesthesia and questions answered. Patient consents. Nursing pain assessment noted. Attestation Statement Prior to the delivery of any anesthetic medication, I examined the patient, developed the plan, obtained the patient's consent and discussed the risk and benefits of the procedure with the patient/guardian. SAVANNA HUERTA Feb 07, 2017 12:43
--- NOTE | 2017-02-08 08:40 | OPNOTEF ---
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 PROCEDURE Split-thickness skin grafting to a 4 cm x 4 cm chronic nonhealing wound involving left anterior chest wall. ANESTHESIA TIVA/local. BRIEF HISTORY/INDICATIONS Ms. Fonseca is a 81-year-old female who in the remote past has had a personal history for left breast cancer. In the remote past she did undergo a left mastectomy followed by postoperative radiation. Unfortunately, the patient developed a wound involving her prior mastectomy incision. This wound has been recalcitrant to healing. 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 This has resulted in marked improvement of a granulation bed within the wound itself. The wound, however, has failed to reepithelialize. In an attempt to facilitate closure, it was recommended she undergo split-thickness skin grafting. For completeness, please refer to notes included in the patient's chart. DESCRIPTION OF PROCEDURE After informed consent was obtained, the patient was brought to the operative suite and placed on the table in supine fashion. Left anterior thigh and left anterior chest wall was then prepped and draped in sterile fashion. Formal time-out was then completed. 0.25% Marcaine with epinephrine was injected at the proposed donor site. 0.25% Marcaine with epinephrine was injected around the edge of the chronic wound involving the left anterior chest wall. Utilizing a sharp surgical curette the recipient site/wound upon the left anterior chest wall was surgically repaired. A minimal amount of bioburden material overlying the granulation bed was removed until a small amount of oozing was present coming forth from the excellent granulation bed. Next, a Martha dermatome was set to about 09/1000 inch. A split-thickness skin graft was then obtained from the left anterior thigh. The skin graft was about 5 cm x 4 cm in length. An excellent skin graft was obtained. The graft was placed within saline to be rinsed. Additional 0.25% Marcaine with epinephrine was placed overlying the donor site followed by a 4 x 4. This was then allowed to set for several minutes. Next the graft itself was then placed upon the wound/granulation bed and cut to the appropriate orientation and fixated to the edges by placing numerous simple interrupted sutures of 4-0 nylon suture. A few of these nylon sutures were left long so that it could be utilized as a bolster dressing. A piece of plain Aquacel was then obtained and placed overlying the skin graft. The Aquacel was slightly moistened and the sutures that were left longer were then tied across from one another resulting in the formation of a bolster dressing. Benzoin was then placed along the edges of the donor site followed by a large OpSite. The patient in the process of awakening from her anesthetic and will be sent back to the preop area once deemed in stable condition. ARSEN
== END 2017-02-07 13:25 | disposition home or self-care (01) ==
LOC: SCU 09:29
PROVIDERS: ATTEND Surgery
DX: S21.102A Unspecified open wound of left front wall of thorax without penetration into thoracic cavity, initial encounter (principal); L59.8 Other specified disorders of the skin and subcutaneous tissue related to radiation; I48.91 Unspecified atrial fibrillation; M10.9 Gout, unspecified; J44.9 Chronic obstructive pulmonary disease, unspecified; K21.9 Gastro-esophageal reflux disease without esophagitis; E78.5 Hyperlipidemia, unspecified; G47.30 Sleep apnea, unspecified; N18.9 Chronic kidney disease, unspecified; Z79.01 Long term (current) use of anticoagulants; Z79.899 Other long term (current) drug therapy; Z79.51 Long term (current) use of inhaled steroids; Z99.81 Dependence on supplemental oxygen; Z88.2 Allergy status to sulfonamides; Z88.5 Allergy status to narcotic agent; Z85.3 Personal history of malignant neoplasm of breast; Z90.12 Acquired absence of left breast and nipple; Z92.3 Personal history of irradiation; Z85.828 Personal history of other malignant neoplasm of skin; Z90.710 Acquired absence of both cervix and uterus; Z90.49 Acquired absence of other specified parts of digestive tract; Z96.653 Presence of artificial knee joint, bilateral
CPT/HCPCS: 15100; 36415; 80053; 85025; A6196; J0690; J2370; J2704; J3010; J7030

== ENCOUNTER → 2017-02-08 | Outpatient (CLI) | payer MEDICARE, BC ==
[~2017-02-08] MED LIST changes: -ASPI81TA2 PO; -ATOR40TA64 PO; -DABI150C PO; -FLUT1DIS PO; -LIDOCAINE 1% (10mg/ml) 2ml SDV INJ ONE; -LISI-625 PO; -NORMAL SALINE 1,000 ML IV PRN; -PRED20TA PO; -TURM500C8
== END ==
LOC: NWCC 09:53
PROVIDERS: ATTEND Internal Medicine
DX: L59.8 Other specified disorders of the skin and subcutaneous tissue related to radiation (principal)
CPT/HCPCS: 99183

== ENCOUNTER → 2017-02-11 | Outpatient (CLI) | payer MEDICARE, BC | LOC: NWCC 09:52 | PROVIDERS: ATTEND Internal Medicine | DX: L59.8 Other specified disorders of the skin and subcutaneous tissue related to radiation (principal); L98.492 Non-pressure chronic ulcer of skin of other sites with fat layer exposed | CPT/HCPCS: 99183 ==

== ENCOUNTER → 2017-02-12 | Outpatient (CLI) | payer MEDICARE, BC | LOC: NWCC 09:00 | PROVIDERS: ATTEND Internal Medicine | DX: L59.8 Other specified disorders of the skin and subcutaneous tissue related to radiation (principal); L98.492 Non-pressure chronic ulcer of skin of other sites with fat layer exposed | CPT/HCPCS: A6196; A6209; G0463; 99183 ==

== ENCOUNTER → 2017-02-15 | Outpatient (CLI) | payer MEDICARE, BC | LOC: NWCC 09:02 | PROVIDERS: ATTEND Internal Medicine | DX: L59.8 Other specified disorders of the skin and subcutaneous tissue related to radiation (principal) | CPT/HCPCS: 99183 ==

== ENCOUNTER → 2017-02-18 | Outpatient (CLI) | payer MEDICARE, BC | LOC: NWCC 09:58 | PROVIDERS: ATTEND Surgery | DX: L59.8 Other specified disorders of the skin and subcutaneous tissue related to radiation (principal) | CPT/HCPCS: 99183 ==

== ENCOUNTER → 2017-02-21 | Outpatient (CLI) | payer MEDICARE, BC | LOC: NWCC 08:54 | PROVIDERS: ATTEND Surgery | DX: L59.8 Other specified disorders of the skin and subcutaneous tissue related to radiation (principal) | CPT/HCPCS: A6210; A6222; G0277; 99183 ==

== ENCOUNTER → 2017-02-25 | Outpatient (CLI) | payer MEDICARE, BC | LOC: NWCC 08:56 | PROVIDERS: ATTEND Internal Medicine | DX: L59.8 Other specified disorders of the skin and subcutaneous tissue related to radiation (principal) | CPT/HCPCS: 99183 ==

== ENCOUNTER → 2017-02-28 | Outpatient (CLI) | payer MEDICARE, BC ==
[~2017-02-28] MED LIST changes: +IOHEXOL 300 MG/ML 75ml INJECTION ONE; +NORMAL SALINE 100 ML ONE; +SALINE FLUSH 10ml SYRINGE ONE
--- NOTE | 2017-02-28 17:17 | DI ---
Indication:ITS.REASON: R91.8 ABNORMAL LUNG FIELD; R13.10 DYSPHAGIA Procedure:ESOPHAGRAM ESOPHAGRAM: Technique:After ingesting air crystals, the patient swallowed thick and thin barium without difficulty. Fluoroscopic imaging was obtained in the upright LPO, supine AP, and right lateral positions. Findings:The cricopharyngeus muscle is moderately prominent and causes a stenosis of approximately 50-60%. This does not seem to restrict the flow of contrast, however. The remainder of the esophagus is negative. Esophageal motility appears normal. There is no Zenker's diverticulum. No hiatal hernia or gastroesophageal reflux is visualized. Impression:Incomplete relaxation of the cricopharyngeus muscle, causing a stenosis of approximately 50-60%. Fluoroscopy dose: 153.20 mGy (Cumulative air kerma) Jace Matos RPA/ITZEL performed this under my direct supervision. .
--- NOTE | 2017-02-28 17:17 | DI ---
EXAM: CT CHEST W/CONTRAST IV contrast COMPARISON: 04/03/2016. 07/25/2007. HISTORY: ITS.REASON: R91.8 ABNORMAL LUNG FIELD; R13.10 DYSPHAGIA LOCATION OF DICTATION: [facility] – [place]. TECHNIQUE: With administration of 75 Omnipaque 300 helically acquired scans were obtained from the lung apices through the domes of the diaphragms. The study is reviewed in soft tissue, bone and lung windows. The study is reconstructed in thinner axial sections and in coronal reformations. The current CT scan was performed using radiation dose-reduction techniques. FINDINGS: SOFT TISSUES: No axillary or supraclavicular, mediastinal, or hilar lymphadenopathy is identified. The vascular structures appear unremarkable. No significant pericardial effusion is identified. The thoracic aorta and pulmonary arteries appear unremarkable. Small mediastinal lymph nodes are noted but are not pathologically enlarged. UPPER ABDOMEN: The upper portion of the liver and spleen visualized appear unremarkable. What is seen of the upper portion of the body and tail of the pancreas appears unremarkable. The bowel visualized appear unremarkable. The upper pole of the left kidney shows a rounded hypodense lesion at the upper pole of the left kidney which may represent a cyst. The upper pole of the right kidney appears unremarkable. The adrenal glands and the pancreas and the bowel visualized appear unremarkable. The gallbladder is surgically absent with surgical clips seen in the gallbladder fossa. CHEST WALL: Unremarkable. BONES: Old healing fracture deformities are seen of the lateral left fifth, sixth, and seventh ribs. These are present on prior exam. No evidence for osseous metastasis. Lungs: Subpleural linear opacities seen at the superior segment of the left lower lobe likely representing scarring. Linear scarring is also seen within the lingula. Subtle subpleural groundglass density seen at the right lung base and the left lung base which could be related to atelectasis. IMPRESSION: 1. Healing old lateral left fifth sixth and seventh rib fractures again noted. 2. Areas of linear scarring is seen within the lingula and superior segment of the left lower lobe with some areas of subpleural groundglass and linear opacities which may represent atelectasis. The lungs are otherwise clear. No mediastinal lymphadenopathy is identified. .
== END ==
LOC: IMA 08:24
PROVIDERS: ATTEND Internal Medicine Pulmonary Disease
DX: R93.3 Abnormal findings on diagnostic imaging of other parts of digestive tract (principal); R91.8 Other nonspecific abnormal finding of lung field; R13.10 Dysphagia, unspecified
CPT/HCPCS: 71260; 74220; J7050; Q9967

== ENCOUNTER 2017-04-12 14:00 | Observation (INO) ==
[2017-04-12] MEDS: SALINE FLUSH 10ml SYRINGE IVF PRN ×2 (14:53→14:58)
--- NOTE | 2017-04-12 15:14 | Emergency Department Report ---
Altered Mental Status HPI - General Chief Complaint: Altered Mental Status Stated Complaint: confusion/depression Time Seen by Provider: 04/12/17 14:37 - History of Present Illness HPI narrative: 81-year-old female with weakness and some slight confusion. This is been increasing over the last 2-3 days. Today she noted that her bladder felt like it had a lot of pressure in her to urinate. She has had difficulty ambulating over the last 24 hours strictly due to fatigue. No falls, no head injury. She has had some medical, occasions recently including pneumonia and sepsis with MRSA. - Related Data Home Medications Medication Instructions Recorded Confirmed Allopurinol 150 mg PO DAILY #0 06/12/10 04/12/17 Magnesium Oxide [Magnesium] 250 mg PO HS #0 05/04/16 04/12/17 Omeprazole 20 mg PO ACB #0 05/04/16 04/12/17 Furosemide 40 mg PO BID #0 08/05/16 04/12/17 Cholecalciferol (Vitamin D3) 400 unit PO HS #0 12/05/16 04/12/17 [Vitamin D3] Docusate Sodium 100 mg PO BID #0 12/05/16 04/12/17 Potassium Chloride ER Tab [K-Dur] 20 meq PO DAILY #0 12/05/16 04/12/17 Multivit-Min/FA/Lycopen/Lutein 1 each PO HS 03/27/17 04/12/17 [Centrum Silver Tablet] Benzonatate 100 mg PO TID PRN 04/06/17 04/12/17 Digoxin 125 mcg PO DAILY 04/06/17 04/12/17 Lisinopril [Zestril] 2.5 mg PO DAILY 04/06/17 04/12/17 Tramadol [Ultram] 50 mg PO Q6HR PRN 04/06/17 04/12/17 Albuterol Neb (0.083%) [Proventil 2.5 mg AEROSOL Q4H PRN 04/12/17 04/12/17 Neb (0.083%)] Atorvastatin [Lipitor] 20 mg PO HS 04/12/17 04/12/17 PEG 3350 17gm PACKET [Miralax] 17 gm PO BID PRN 04/12/17 04/12/17 Ubidecarenone [Co Q-10] 200 mg PO HS 04/12/17 04/12/17 Previous Rx's Medication Instructions Recorded Metoprolol Succinate (Xl) [Toprol 37.5 mg PO DAILY 04/14/17 Xl] Allergies Allergy/AdvReac Type Severity Reaction Status Date / Time Sulfa (Sulfonamide Allergy Intermediate NAUSEA, Verified 04/12/17 14:21 Antibiotics) VOMIT adhesive tape Allergy Unknown Verified 04/12/17 14:21 morphine Allergy Unknown SHORTNESS Verified 04/12/17 14:21 OF BREATH,Diarrhea Review of Systems All systems: reviewed and negative except as stated PFSH Patient Stated Medical History Glaucoma Yes 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 Other HEENT Yes: DEAF ON RIGHT EAR Cardiac Arrhythmia Yes: A FIB Congestive Heart Failure Yes Hypertension Yes Other Cardiology Yes: A FIB AT ALL TIMES Bronchitis Yes: ALWAYS Pneumonia Yes Gastroesophageal Reflux Yes Disease Other Yes: HX UTI'S Osteoarthritis Yes MRSA Yes Sepsis RESOLVED MRSA "NEAR THE HEART" Surgical History: Hysterectomy - Social History Smoking status: Never smoker Physical Exam - Limitations Limitations: no limitations - General General appearance: alert, other (patient is able to carry on a coherent conversation, she states that she thinks is having some trouble remembering things last day or 2.) - Normal Exams: Head:: Normocephalic without trauma Chest/Respirations:: Clear all deshpande, with good airflow, and symmetry bilaterally Cardiovascular:: Regular rate and rhythm, without murmur or gallop, Pulses 2+ all extremities, capillary refill, <2 seconds all extremities Abdomen:: Bowel sounds positive, non-distended, no hepatosplenomegaly, masses or bruits noted Musculoskeletal:: No tenderness, or deformity noted, good range of motion, all extremities Integumentary:: No rashes, hives, or bruising noted, hair and nails, without abnormality Neurological:: Patient is alert, and oriented, cranial nerves, motor/sensory/ cerebellar, exams w/o gross deficits, to observation Psychiatric:: Patient exhibits, appropriate attention, emotion and affect - Abdominal Exam Abdominal exam: Present: other (mildly tender suprapubic) Course Vital Signs Temperature 97.8 F 04/12/17 14:22 Pulse Rate 59 L 04/12/17 14:22 Respiratory Rate 16 04/12/17 14:22 Blood Pressure 137/67 04/12/17 14:22 Pulse Oximetry 99 04/12/17 14:22 Temperature 97.8 F 04/12/17 14:22 Pulse Rate 59 L 04/12/17 14:22 Respiratory Rate 16 04/12/17 14:22 Blood Pressure 137/67 04/12/17 14:22 Pulse Oximetry 99 04/12/17 14:22 Altered Mental Status - MDM Narrative Medical decision making narrative: Patient has significant anemia. One week ago her hemoglobin was 14, today is 9.7. She's had no rectal bleed and no vomiting of blood. In the interim she has developed bilateral pelvic hematomas. It may be possible, but not certain that the loss of blood is all related to this. She is too weak to get up and take care of herself, has a right upper lobe pneumonia on x-ray and is definitely appropriate for admission to the hospital. Hospitalist accepted the admission patient transferred in stable condition. - Lab Data Result diagrams: 04/14/17 03:59 04/14/17 03:59 Lab Results 04/12/17 Range/Units 14:49 Ur Collection Type Urine, clean catch Urine Color Yellow (YELLOW) Urine Clarity Clear Urine pH 7.0 (5.0-8.0) Ur Specific Hardy 1.010 L (1.015-1.025) Urine Protein Negative (NEGATIVE) Urine Glucose (UA) Negative (NEGATIVE) Urine Ketones Negative (NEGATIVE) Urine Occult Blood Negative (NEGATIVE) Urine Nitrate Negative (NEGATIVE) Urine Bilirubin Negative (NEGATIVE) Urine Urobilinogen 0.2 (NORMAL) EU/DL Ur Leukocyte Esterase Negative (NEGATIVE) Urinalysis Comment Microscopic not ind. Disposition Clinical Impression: ANEMIA, Delirium due to general medical condition Disposition: 02 To [facility] Condition: Stable Time of Disposition: 08:10 - Seen By: physician
--- NOTE | 2017-04-12 15:48 | XRay Report ---
INDICATION: mental status change PROCEDURE: CHEST 2-VIEWS UPRIGHT (PA & LAT) Encounter: Initial COMPARISON: April 10, 2017 FINDINGS: The lungs are clear without evidence of focal abnormal airspace opacity. There is no pleural effusion or pneumothorax. The heart size, mediastinal contours and pulmonary vascularity are stable. IMPRESSION: No acute cardiopulmonary disease. .
[2017-04-12] MEDS ORDERED: POLYETHYL GLYCOL 3350 17gm PACKET PO PRN (19:01)
[2017-04-12] MEDS ORDERED: TRAMADOL 50 MG TABLET PO PRN (19:01)
[2017-04-12] MEDS ORDERED: BENZONATATE 100 MG CAPSULE PO PRN (19:01)
[2017-04-12] MEDS ORDERED: ALBUTEROL 2.5mg/3ml (0.083%) NEB AEROSOL PRN (19:01)
--- NOTE | 2017-04-12 20:22 | History & Physical Report ---
History of Present Illness Date: 04/12/17 Chief complaint: Fatigue HPI: This is a 81 YO female that comes to the hospital with fatigue that has been worse for the last several days. She states she's had 3 hospitalizations "back to [facility]" recently with about 4 days at home in [facility]. Last one, she was at [place], for hematomas that developed (apparently retriperitoneal). She describes what sounds like embolization - and states was going to be given a medication to "break down the clots". In any event, she came today for fatigue. She is on BB and her HR has been very slow. Initial Hemoglobin is above 9. Telmetry shows HR of 60 to 66, irregularly irregular. She states she is fatigued but denies PND, orthopnea, or syncope. She states her medical services manager did not try her on Warfarin and she was on Xarelto, Eliquis and Pradaxa. 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 Other HEENT Yes: DEAF ON RIGHT EAR Cardiac Arrhythmia Yes: A FIB Congestive Heart Failure Yes Hypertension Yes Other Cardiology Yes: A FIB AT ALL TIMES Bronchitis Yes: ALWAYS Pneumonia Yes Gastroesophageal Reflux Yes Disease Other Yes: HX UTI'S Anemia Yes Other Hematologic Yes: pradaxa xelerto eliquis due to afib Osteoarthritis Yes MRSA Yes Sepsis Yes: RESOLVED MRSA "NEAR THE HEART" Chemotherapy Yes: 2002 Surgical History: Hysterectomy - Social History Smoking status: Never smoker Substance use type: does not use Alcohol intake frequency: does not drink Housing: apartment Household members: family Current occupational status: retired Medications Home Medications Medication Instructions Recorded Confirmed Type Allopurinol 150 mg PO DAILY #0 06/12/10 04/12/17 History Magnesium Oxide [Magnesium] 250 mg PO HS #0 05/04/16 04/12/17 History Omeprazole 20 mg PO ACB #0 05/04/16 04/12/17 History Furosemide 40 mg PO BID #0 08/05/16 04/12/17 History Cholecalciferol (Vitamin D3) 400 unit PO HS #0 12/05/16 04/12/17 History [Vitamin D3] Docusate Sodium 100 mg PO BID #0 12/05/16 04/12/17 History Potassium Chloride ER Tab [K-Dur] 20 meq PO DAILY #0 12/05/16 04/12/17 History Multivit-Min/FA/Lycopen/Lutein 1 each PO HS 03/27/17 04/12/17 History [Centrum Silver Tablet] Benzonatate 100 mg PO TID PRN 04/06/17 04/12/17 History Digoxin 125 mcg PO DAILY 04/06/17 04/12/17 History Lisinopril [Zestril] 2.5 mg PO DAILY 04/06/17 04/12/17 History Tramadol [Ultram] 50 mg PO Q6HR PRN 04/06/17 04/12/17 History Albuterol Neb (0.083%) [Proventil 2.5 mg AEROSOL Q4H PRN 04/12/17 04/12/17 History Neb (0.083%)] Atorvastatin [Lipitor] 20 mg PO HS 04/12/17 04/12/17 History Metoprolol Succinate 50 mg PO DAILY 04/12/17 04/12/17 History PEG 3350 17gm PACKET [Miralax] 17 gm PO BID PRN 04/12/17 04/12/17 History Ubidecarenone [Co Q-10] 200 mg PO HS 04/12/17 04/12/17 History Allergies Allergy/AdvReac Type Severity Reaction Status Date / Time Sulfa (Sulfonamide Allergy Intermediate NAUSEA, Verified 04/12/17 14:21 Antibiotics) VOMIT adhesive tape Allergy Unknown Verified 04/12/17 14:21 morphine Allergy Unknown SHORTNESS Verified 04/12/17 14:21 OF BREATH,Diarrhea Exam Vital Signs: Temp Pulse Resp BP Pulse Ox 98.2 F 73 20 122/62 96 04/12/17 18:18 04/12/17 18:18 04/12/17 18:18 04/12/17 18:18 04/12/17 18:18 Telemetry Rhythm: A-fib Height: 5 ft Weight: 83.9 kg Body Mass Index: 36.1 - Constitutional Present: no acute distress, well developed, cooperative - Routine HEENT Exam Head: Present: normocephalic, atraumatic Eye: Present: EOMI, PERRL - Routine Neck Exam Present: supple. Absent: JVD - Routine Chest/Breast/Axilla Exam Chest wall: Absent: tenderness, mass - Routine Respiratory Exam Present: CTA bilaterally. Absent: rales, rhonchi, stridor, wheezes - Routine Cardiovascular Exam Present: irregularly irregular - Routine Abdominal Exam Present: soft, non distended, non tender - Routine Extremities Exam Absent: cyanosis, clubbing, edema - Routine Neurological Exam Present: alert, oriented X3, moving all extremities. Absent: tremors, asterixis - Routine Psychiatric Exam Present: normal affect, cooperative, good insight Results - Labs CBC & Chem 7: 04/12/17 15:13 04/12/17 15:13 Assessment and Plan Assessment and Plan: This is a 81 YO female with H.O CHF and A fib that had retroperitoneal hematomas as a complication of DOAC's and required apparently embolization to control the bleed (At [facility]). I have requested the records to clarify. At this time she does not appear to have any infection, and probably her symptoms are worsened due to excessive beta blockade, as she is anemic and she is not able to compensate. Will proceed and reduce her BB dose and observe with serial H.H. her bilirrubin is high due to breakdown of RBC in the hematoma. Dx 1) Fatigue, probably due to blunting of increase HR, in response to anemia. - Get old records - decrease BB dose - Serial H.H - If pt develops sings of infection would need drainage of infected hematomas, at this time she is not having any 2) A fib - Rate is controlled. - Pt has had life-threatening compliacation with Oral anticoagulants, and will not add them. 3) Prevention - SCD's - PPI 4) Code status is full code. Sepsis Assessment - Evaluation Sepsis screening result: No Definite Risk Hospital Course Summary Disclaimer: The visit summary below is not to be considered part of the above Progress Note.
[2017-04-12] MEDS ORDERED: FUROSEMIDE 40 MG TABLET PO SCH (21:00)
[2017-04-12] MEDS ORDERED: ATORVASTATIN 40 MG TABLET PO SCH (22:00)
[2017-04-12] MEDS: ALLOPURINOL 300 MG TABLET PO SCH (22:24)
[2017-04-12] MEDS: LISINOPRIL 2.5 MG TABLET PO SCH (22:24)
[2017-04-12] MEDS: COENZYME Q10 200 MG PO SCH (22:24)
[2017-04-12] MEDS: DOCUSATE SODIUM 100 MG CAPSULE PO SCH (22:25)
[2017-04-13] MEDS: OMEPRAZOLE 20 MG CAPSULE PO SCH (05:32)
[2017-04-13] MEDS: MULTI-VITAMIN PLAIN TABLET PO SCH ×2 (06:25→22:02)
[2017-04-13] MEDS: MAGNESIUM OXIDE 400 MG TABLET PO SCH ×2 (06:25→22:01)
[2017-04-13] MEDS ORDERED: METOPROLOL SUCCINATE 50 MG PO SCH (09:00)
[2017-04-13] MEDS ORDERED: FUROSEMIDE 40 MG TABLET PO SCH (09:00)
[2017-04-13] MEDS: DOCUSATE SODIUM 100 MG CAPSULE PO SCH ×3 (09:16→22:04)
[2017-04-13] MEDS: LISINOPRIL 2.5 MG TABLET PO SCH (09:17)
[2017-04-13] MEDS: ALLOPURINOL 300 MG TABLET PO SCH (09:19)
--- NOTE | 2017-04-13 10:33 | Progress Note ---
Subjective: Pt is up having breakfast and states she is feeling well today. Denies significant SOB or CP. Hemoglobin is a bit up. Objective Vital signs: Temp Pulse Resp BP Pulse Ox 97.8 F 65 17 131/68 92 04/13/17 07:39 04/13/17 07:39 04/13/17 07:39 04/13/17 07:39 04/13/17 07:39 Rhythm: Normal Sinus Rhythm Cardiac Ectopy: Rare PVC's Weight: 82 kg - Constitutional Present: no acute distress, well developed, cooperative - Routine HEENT Exam Head: Present: normocephalic, atraumatic Eye: Present: EOMI, PERRL ENT: Present: mucous membranes moist - Routine Respiratory Exam Present: CTA bilaterally - Routine Cardiovascular Exam Present: irregularly irregular Comments: Bradycardic with HR in the mid 50's - Routine Extremities Exam Absent: cyanosis, clubbing, edema - Routine Skin Exam Present: intact - Routine Neurological Exam Present: alert, oriented X3 - Routine Psychiatric Exam Present: normal affect, cooperative Results - Labs CBC & Chem 7: 04/13/17 04:11 04/13/17 04:11 Assessment and Plan Assessment and Plan: This is a 81 YO female with H.O CHF and A fib that had retroperitoneal hematomas as a complication of DOAC's and required embolization to control the bleed (At [facility]). At this time she does not appear to have any infection, and probably her symptoms are worsened due to excessive beta blockade, as she is anemic and she is not able to compensate. Will hold the next dose of BB and allow HR to go up to the 70's or so. Dx 1) Fatigue, probably due to blunting of increase HR, in response to anemia, superimposed on CHF (LVEF of 20 to 25%) - Decrease BB dose - If pt develops sings of infection would need drainage of infected hematomas, at this time she is not having any 2) Anemia due to abdominal wall bleed (R and L rectus sheet) recently attributed to oral anticoagulants for A-fib - Pt had coil embolization at [place] of the following 4 vessels. (IR embolization - [facility] - 04/06/2017) - Left inferior epigastric artery - Left circumflex iliac artery - Right inferior epigastric artery - Right circumflex iliac artery. 2) Atrial firbrillation with bradycardia due to excess beta-blockade. - Rate is controlled, actually very slow will hold BB for now to allow for better compensation to anemia. - Pt has had life-threatening compliacation with Oral anticoagulants, and will not add them. 3) Prevention - SCD's - PPI 4) Code status is full code. Sepsis Assessment - Evaluation Sepsis screening result: No Definite Risk Hospital Course Summary Disclaimer: The visit summary below is not to be considered part of the above Progress Note.
[2017-04-13] MEDS ORDERED: ATORVASTATIN 20 MG TABLET PO SCH (22:00)
[2017-04-13] MEDS: COENZYME Q10 200 MG PO SCH (22:01)
[2017-04-14] MEDS: OMEPRAZOLE 20 MG CAPSULE PO SCH (06:27)
[2017-04-14] MEDS: ALLOPURINOL 300 MG TABLET PO SCH (09:17)
[2017-04-14] MEDS: DOCUSATE SODIUM 100 MG CAPSULE PO SCH (09:17)
[2017-04-14] MEDS: LISINOPRIL 2.5 MG TABLET PO SCH ×2 (09:19→10:29)
[2017-04-14] MEDS ORDERED: METOPROLOL SUCCINATE (XL) 25mg TABLET PO SCH (10:45)
--- NOTE | 2017-04-14 13:03 | XRay Report ---
INDICATION: Shortness of breath PROCEDURE: CHEST 2-VIEWS UPRIGHT (PA & LAT) Encounter: Initial Comparison: April 12, 2017 Findings: The lungs are stable in appearance without new focal airspace consolidation. There is no pleural effusion or pneumothorax. The heart size, pulmonary vascularity and mediastinal contours are unchanged. IMPRESSION: Stable appearance of the chest without acute cardiopulmonary disease. .
--- NOTE | 2017-04-14 16:54 | Discharge Summary ---
Discharge Plan - Med Rec/Dispo Additional Instructions: ONLY TAKE 1 AND 1/2 TABLET OF METOPROLOL, DAILY. CHECK YOUR PULSE TWICE DAILY, AFTER YOU HAVE BEEN RESTING FOR 10 MINUTES. IF YOUR RESTING HEART RATE IS 90 OR GREATER REPEATEDLY INCREASE THE METOPROLOL BACK TO 2 TABLETS. HAVE HOME HEALTH NURSE CHECK BLOOD PRESSURE WITH CUFF AND ELECTRONIC BRACELET TO COMPARE READINGS SO YOU WILL KNOW IF AUTOMATIC CUFF IS ACCURATE. Prescriptions: New Metoprolol Succinate (Xl) [Toprol Xl] 37.5 mg PO DAILY Continue Magnesium Oxide [Magnesium] 250 mg PO HS #0 Furosemide 40 mg PO BID #0 Cholecalciferol (Vitamin D3) [Vitamin D3] 400 unit PO HS #0 Docusate Sodium 100 mg PO BID #0 Multivit-Min/FA/Lycopen/Lutein [Centrum Silver Tablet] 1 each PO HS Digoxin 125 mcg PO DAILY Tramadol [Ultram] 50 mg PO Q6HR PRN PRN Reason: Pain Lisinopril [Zestril] 2.5 mg PO DAILY PEG 3350 17gm PACKET [Miralax] 17 gm PO BID PRN PRN Reason: Constipation Atorvastatin [Lipitor] 20 mg PO HS Albuterol Neb (0.083%) [Proventil Neb (0.083%)] 2.5 mg AEROSOL Q4H PRN PRN Reason: Prn Orders Allopurinol 150 mg PO DAILY #0 Potassium Chloride ER Tab [K-Dur] 20 meq PO DAILY #0 Benzonatate 100 mg PO TID PRN PRN Reason: Cough Ubidecarenone [Co Q-10] 200 mg PO HS Discontinued Metoprolol Succinate 50 mg PO DAILY No Action Omeprazole 20 mg PO ACB #0 Discharge Instructions/Outpatient Orders: Final Provider Discharge Instructions Location: Determined By Patient - Disposition 01 Discharged Home, Self-Care
--- NOTE | 2017-04-14 17:01 | Discharge Summary ---
Discharge Information Date of admission: 04/12/17 17:46 Attending Physician: Jin Garrison MD Primary care physician: Cynthia Gonsalves MD - Laboratory Labs: 04/14/17 03:59 04/14/17 03:59 History of Present Illness HPI: This is a 81 YO female that comes to the hospital with fatigue that has been worse for the last several days. She states she's had 3 hospitalizations "back to [facility]" recently with about 4 days at home in [facility]. Last one, she was at [place], for hematomas that developed (apparently retriperitoneal). She describes what sounds like embolization - and states was going to be given a medication to "break down the clots". In any event, she came today for fatigue. She is on BB and her HR has been very slow (mid to upper 40's). Initial Hemoglobin is above 9. Telmetry shows, irregularly irregular nrhythm. She states she is fatigued but denies PND, orthopnea, or syncope. 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 04/14/17 17:00 Hospital Course Hospital course: SUMMARY - This is a 81 YO female with H.O CHF and A fib that had retroperitoneal hematomas as a complication of DOAC's, that required embolization to control the bleed (At [facility]). She was admitted due to excessive fatigue and SOB. CXR did not show any CHF. Her BB was changed today to 37.5 mg. She has a resting HR in the 70's now. with mild activity - walking 50 feet, her HR goes up to 110 - 130 but then quickly recovers. She states she is still SOB but feels better and wants to go home. FINAL DIAGNOSIS. 1) Fatigue, probably due to blunting of increase HR, in response to anemia, superimposed on CHF (LVEF of 20 to 25%) - Decrease BB dose to Toprol XL 37.5 mg. Once her hemoglobin is better she may be able to tolerate a higher dose again. - If pt develops sings of infection would need drainage of infected hematomas, at this time she is not having any 2) Anemia due to abdominal wall bleed (R and L rectus sheet) recently attributed to oral anticoagulants for A-fib - Pt had coil embolization at [place] of the following 4 vessels. (IR embolization - [facility] - 04/06/2017) - Left inferior epigastric artery - Left circumflex iliac artery - Right inferior epigastric artery - Right circumflex iliac artery. 3) Atrial firbrillation with bradycardia due to excess beta-blockade. - Pt has had life-threatening compliacation with Oral anticoagulants, and will not add them. Disposition - home now. Discharge Plan - Med Rec/Dispo Additional Instructions: ONLY TAKE 1 AND 1/2 TABLET OF METOPROLOL, DAILY. CHECK YOUR PULSE TWICE DAILY, AFTER YOU HAVE BEEN RESTING FOR 10 MINUTES. IF YOUR RESTING HEART RATE IS 90 OR GREATER REPEATEDLY INCREASE THE METOPROLOL BACK TO 2 TABLETS. HAVE HOME HEALTH NURSE CHECK BLOOD PRESSURE WITH CUFF AND ELECTRONIC BRACELET TO COMPARE READINGS SO YOU WILL KNOW IF AUTOMATIC CUFF IS ACCURATE. Prescriptions: New Metoprolol Succinate (Xl) [Toprol Xl] 37.5 mg PO DAILY Continue Magnesium Oxide [Magnesium] 250 mg PO HS #0 Furosemide 40 mg PO BID #0 Cholecalciferol (Vitamin D3) [Vitamin D3] 400 unit PO HS #0 Docusate Sodium 100 mg PO BID #0 Multivit-Min/FA/Lycopen/Lutein [Centrum Silver Tablet] 1 each PO HS Digoxin 125 mcg PO DAILY Tramadol [Ultram] 50 mg PO Q6HR PRN PRN Reason: Pain Lisinopril [Zestril] 2.5 mg PO DAILY PEG 3350 17gm PACKET [Miralax] 17 gm PO BID PRN PRN Reason: Constipation Atorvastatin [Lipitor] 20 mg PO HS Albuterol Neb (0.083%) [Proventil Neb (0.083%)] 2.5 mg AEROSOL Q4H PRN PRN Reason: Prn Orders Allopurinol 150 mg PO DAILY #0 Potassium Chloride ER Tab [K-Dur] 20 meq PO DAILY #0 Benzonatate 100 mg PO TID PRN PRN Reason: Cough Ubidecarenone [Co Q-10] 200 mg PO HS Discontinued Metoprolol Succinate 50 mg PO DAILY No Action Omeprazole 20 mg PO ACB #0 Discharge Instructions/Outpatient Orders: Final Provider Discharge Instructions Location: Determined By Patient - Disposition 01 Discharged Home, Self-Care
== END 2017-04-14 18:00 | disposition home health service (06) ==
LOC: ED 14:00 → MED 14:00
PROVIDERS: ADMIT Internal Medicine; ATTEND Internal Medicine

== ENCOUNTER 2017-12-24 13:14 | Inpatient (IN) ==
[~2017-12-24 13:14] MED LIST changes: -ALBU8.5H INH; -ALLO300T74 PO; -ATOR40TA PO; -CHOL400C7 PO; -CLOB15CR4; -DICL100G5 TOP; -DOCU-175 PO; -FURO40TA5 PO; -HYDR-4246 PO; -IOHEXOL 300 MG/ML 75ml INJECTION ONE; -IPRA3AMP AEROSOL; -MAGN250T33 PO; -MULT-795 PO; -NORMAL SALINE 100 ML ONE; -OMEP20CA10 PO; -POTA20TA10 PO; -RIVA20TA PO; +SALINE FLUSH 10ml SYRINGE IV PRN; -SALINE FLUSH 10ml SYRINGE ONE; -SOTA80TA20 PO; -UBID200C8 PO
[2017-12-24 14:31] VITALS: BMI 34.4
[2017-12-24] MEDS ORDERED: CEFAZOLIN 1 G INJECTION ONE (14:45)
[2017-12-24] MEDS ORDERED: LIDOCAINE 1% (10mg/ml) 30ml SDV INJ ONE ×2 (14:45→16:00)
[2017-12-24] MEDS ORDERED: FentaNYL 100 MCG/2 ML INJECTION ONE ×2 (14:45→16:27)
[2017-12-24] MEDS ORDERED: MIDAZOLAM 2mg/2ml INJECTION ONE (14:45)
[2017-12-24] MEDS ORDERED: BACITRACIN 50,000 UNIT INJECTION ONE (14:46)
[2017-12-24] MEDS ORDERED: MAG-AL + SIM ORAL LIQUID 30ml PO PRN (17:13)
[2017-12-24] MEDS: NS 1,000 ML IV SCH (17:58)
[2017-12-24] MEDS: APAP/CODEINE 300 MG/30 MG TABLET PO PRN (18:08)
[2017-12-24] MEDS ORDERED: SACUBITRIL PO SCH (21:00)
[2017-12-24] MEDS ORDERED: VALSARTAN PO SCH (21:00)
[2017-12-24] MEDS: --POM--FUROSEMIDE 20 MG TABLET PO SCH (21:12)
[2017-12-24] MEDS: DOCUSATE SODIUM 100 MG PO SCH (21:31)
[2017-12-24] MEDS: MAGNESIUM OXIDE 400 MG TABLET PO SCH (21:31)
[2017-12-24] MEDS: MIRTAZAPINE 15 MG PO SCH (21:38)
[2017-12-24] MEDS: --POM--ATORVASTATIN 40 MG TABLET PO SCH (21:38)
[2017-12-24] MEDS: CEFAZOLIN 1 G in NS 50 ML IV SCH (23:04)
[2017-12-25] MEDS: NS 1,000 ML IV SCH ×2 (04:23→11:45)
[2017-12-25] MEDS: OMEPRAZOLE 20 MG CAPSULE PO SCH (06:28)
[2017-12-25] MEDS: APAP/CODEINE 300 MG/30 MG TABLET PO PRN (07:48)
[2017-12-25] MEDS: --POM--FUROSEMIDE 40 MG TABLET PO SCH ×2 (07:50→08:25)
[2017-12-25] MEDS: --POM--LEVOTHYROXINE 25 MCG TABLET PO SCH ×2 (07:53→08:25)
[2017-12-25] MEDS: --POM--ASPIRIN *EC* 81 MG TABLET PO SCH ×2 (07:54→08:26)
[2017-12-25] MEDS: --POM--ALLOPURINOL 300 MG TABLET PO SCH ×2 (07:55→08:26)
[2017-12-25] MEDS: MULTI-VITAMIN + MINERAL TABLET PO SCH (08:07)
[2017-12-25] MEDS: MINOCYCLINE 100 MG CAPSULE PO SCH ×2 (08:07→20:18)
[2017-12-25] MEDS: COENZYME Q10 200 MG PO SCH (08:08)
[2017-12-25] MEDS: GLUCOSAMINE/CHONDROITIN 500 MG/400 MG CAPSULE PO SCH (08:08)
[2017-12-25] MEDS: ZINC GLUCONATE 50 MG TABLET PO SCH (08:09)
--- NOTE | 2017-12-25 08:48 | XRay Report ---
Indication: ppm PROCEDURE: XR chest 1V: Encounter: Initial Comparison: October 08, 2017 and December 25, 2017 Findings: New right-sided pacemaker defibrillator with a right ventricular lead. Lungs are clear. There is a very subtle small left apical pneumothorax. The pleural margin is difficult to visualize. This appears to be on the order of 5% or less. Heart size and mediastinal contours are stable. Impression: New right sided pacemaker with a small right apical pneumothorax. Finding was called to the ordering physician at 0845 on December 25, 2017. .
--- NOTE | 2017-12-25 08:52 | XRay Report ---
INDICATION: ppm PROCEDURE: CHEST 2-VIEWS UPRIGHT (PA & LAT) Encounter: Initial COMPARISON: December 24, 2017 FINDINGS: Significant interval worsening in the right sided pneumothorax which is now moderate on the order of 40% with developing collapse of the right lung. No mediastinal shift seen currently. No left-sided pneumothorax or pleural effusion. Heart size and mediastinal contours are stable. Right sided pacemaker defibrillator is stable in position with a right ventricular lead. Impression: Enlarging right-sided pneumothorax. Findings called to the ordering physician at 0845 on December 25, 2017. .
--- NOTE | 2017-12-25 09:18 | Cardiology Progress Note ---
<Beryl Morgan - Last Filed: 12/25/17 09:14> Subjective Principal diagnosis: S/P ICD Interval history: Matt is seen in follow up S/P ICD insertion on right side 12/24/17. She is in CCU, in no distress. She transferred there due to low BP last night. This am, HR and BP are elevated. She denies dyspnea and is on room air, however her chest x-ray revealed a pneumothorax this morning. Dressing to site is removed and incision is C/D/I. She reports tenderness around site but denies chest pain or pressure. Exam Vital signs: Temperature 96.7 F L 12/24/17 18:55 Pulse Rate 60 12/25/17 07:00 Respiratory Rate 17 12/25/17 07:00 Blood Pressure 162/72 H 12/25/17 07:00 Pulse Oximetry 95 12/25/17 07:00 Inpatient Medications: Generic Name Dose Route Start Last Admin Trade Name Freq PRN Reason Stop Dose Admin Acetaminophen/Codeine Phosphate 1 - 2 tab 12/24/17 17:13 12/25/17 07:48 Tylenol With Codeine #3 (300/30) PO 1 tab Q4H PRN Administration Pain Al Hydroxide/Mg Hydroxide 30 ml 12/24/17 17:13 Maalox Plus PO Q3H PRN Indigestion Allopurinol 150 mg 12/25/17 09:00 12/25/17 08:26 Zyloprim PO Not Given DAILY [facility]AN[facility]A Aspirin 81 mg 12/25/17 09:00 12/25/17 08:26 Ecotrin PO Not Given DAILY [facility]AN[facility]A Atorvastatin Calcium 20 mg 12/24/17 21:00 12/24/17 21:38 Lipitor PO 20 mg HS SAMANTHA Administration Cholecalciferol 400 unit 12/24/17 21:00 12/24/17 21:30 Vit. D-3 PO Not Given HS [facility]ANTHA Coenzyme Q10 200 mg 12/25/17 09:00 12/25/17 08:08 Co Q-10 PO Not Given DAILY [facility] Docusate Sodium 100 mg 12/24/17 21:00 12/24/17 21:31 Colace PO Not Given BID [facility]A Enoxaparin Sodium 40 mg 12/26/17 09:00 Lovenox SQ DAILY [facility] Furosemide 40 mg 12/25/17 09:00 12/25/17 08:25 Lasix PO Not Given DAILY [facility] Furosemide 40 mg 12/24/17 20:00 12/24/17 21:12 Lasix PO Not Given PM [facility]AN[facility]A Glucosamine/Chondroitin 1 cap 12/25/17 09:00 12/25/17 08:08 Osteo Bi-Flex PO Not Given DAILY [facility] Sodium Chloride 1,000 mls @ 75 mls/hr 12/24/17 11:15 12/25/17 07:25 Normal Saline IV 75 mls/hr .[id number] [facility] Infusion Cefazolin Sodium 1 g/ Sodium 50 mls @ 100 mls/hr 12/24/17 23:00 12/25/17 00: 05 Chloride IV 12/25/17 09:29 Infused Q8HR [facility] Infusion Levalbuterol HCl 1.25 mg 12/24/17 17:13 Xopenex 1.25mg/3ml AEROSOL Q8HR PRN Dyspnea Levothyroxine Sodium 25 mcg 12/25/17 09:00 12/25/17 08:25 Synthroid PO Not Given DAILY [facility] Magnesium Oxide 200 mg 12/24/17 21:00 12/24/17 21:31 Magox PO Not Given HS [facility] Metoprolol Succinate 100 mg 12/25/17 09:00 Toprol Xl PO DAILY [facility] Minocycline HCl 100 mg 12/25/17 09:00 12/25/17 08:07 Minocin PO 01/01/18 08:59 100 mg BID [facility] Administration Mirtazapine 15 mg 12/24/17 21:00 12/24/17 21:38 Remeron PO 15 mg HS [facility]A Administration Multivitamins/Minerals 1 tab 12/25/17 09:00 12/25/17 08:07 Therapeutic - M PO Not Given DAILY [facility] Omeprazole 20 mg 12/25/17 06:30 12/25/17 06:28 Prilosec PO Not Given ACB [facility] Sacubitril/Valsartan 1 tab 12/24/17 21:00 12/24/17 21:25 Entresto 49/51mg PO Not Given BID [facility] Sodium Chloride 10 ml 12/24/17 11:07 Iv Flush IV PRN PRN Flushing Zinc Gluconate 50 mg 12/25/17 09:00 12/25/17 08:09 Zinc Gluconate PO Not Given DAILY [facility] - Constitutional no acute distress, well nourished, cooperative - Routine HEENT Exam Head: Present: normocephalic ENT: Present: mucous membranes moist - Routine Neck Exam Absent: JVD, carotid bruit - Routine Chest/Breast/Axilla Exam Chest wall: Present: tenderness, pacemaker - Routine Respiratory Exam Present: CTA bilaterally. Absent: rales, wheezes - Routine Cardiovascular Exam Present: murmur (II/), tachycardia - Routine Abdominal Exam Present: soft, normoactive bowel sounds - Routine Extremities Exam Present: no edema - Routine Skin Exam Present: intact, dry, warm - Routine Neurological Exam Present: alert, oriented X3 - Routine Psychiatric Exam Present: normal affect, normal thought process - Additional findings Additional findings: Acetaminophen/Codeine Phosphate (Tylenol With Codeine #3 (300/30)) 1 - 2 tab PO Q4H PRN PRN Reason: Pain Last Admin: 12/25/17 07:48 Dose: 1 tab Al Hydroxide/Mg Hydroxide (Maalox Plus) 30 ml PO Q3H PRN PRN Reason: Indigestion Allopurinol (Zyloprim) 150 mg PO DAILY [facility] Last Admin: 12/25/17 08:26 Dose: Not Given Aspirin (Ecotrin) 81 mg PO DAILY [facility] Last Admin: 12/25/17 08:26 Dose: Not Given Atorvastatin Calcium (Lipitor) 20 mg PO HS [facility] Last Admin: 12/24/17 21:38 Dose: 20 mg Cholecalciferol (Vit. D-3) 400 unit PO HS [facility] Last Admin: 12/24/17 21:30 Dose: Not Given Coenzyme Q10 (Co Q-10) 200 mg PO DAILY [facility] Last Admin: 12/25/17 08:08 Dose: Not Given Docusate Sodium (Colace) 100 mg PO BID [facility] Last Admin: 12/24/17 21:31 Dose: Not Given Enoxaparin Sodium (Lovenox) 40 mg SQ DAILY [facility] Furosemide (Lasix) 40 mg PO DAILY [facility] Last Admin: 12/25/17 08:25 Dose: Not Given Furosemide (Lasix) 40 mg PO PM [facility] Last Admin: 12/24/17 21:12 Dose: Not Given Glucosamine/Chondroitin (Osteo Bi-Flex) 1 cap PO DAILY [facility] Last Admin: 12/25/17 08:08 Dose: Not Given Sodium Chloride (Normal Saline) 1,000 mls @ 75 mls/hr IV .[id number] [facility] Last Infusion: 12/25/17 07:25 Dose: 75 mls/hr Cefazolin Sodium 1 g/ Sodium (Chloride) 50 mls @ 100 mls/hr IV Q8HR [facility] Stop: 12/25/17 09:29 Last Infusion: 12/25/17 00:05 Dose: Infused Levalbuterol HCl (Xopenex 1.25mg/3ml) 1.25 mg AEROSOL Q8HR PRN PRN Reason: Dyspnea Levothyroxine Sodium (Synthroid) 25 mcg PO DAILY [facility] Last Admin: 12/25/17 08:25 Dose: Not Given Magnesium Oxide (Magox) 200 mg PO HS [facility] Last Admin: 12/24/17 21:31 Dose: Not Given Metoprolol Succinate (Toprol Xl) 100 mg PO DAILY [facility] Minocycline HCl (Minocin) 100 mg PO BID [facility] Stop: 01/01/18 08:59 Last Admin: 12/25/17 08:07 Dose: 100 mg Mirtazapine (Remeron) 15 mg PO HS [facility] Last Admin: 12/24/17 21:38 Dose: 15 mg Multivitamins/Minerals (Therapeutic - M) 1 tab PO DAILY [facility] Last Admin: 12/25/17 08:07 Dose: Not Given Omeprazole (Prilosec) 20 mg PO ACB [facility] Last Admin: 12/25/17 06:28 Dose: Not Given Sacubitril/Valsartan (Entresto 49/51mg) 1 tab PO BID [facility] Last Admin: 12/24/17 21:25 Dose: Not Given Sodium Chloride (Iv Flush) 10 ml IV PRN PRN PRN Reason: Flushing Zinc Gluconate (Zinc Gluconate) 50 mg PO DAILY [facility] Last Admin: 12/25/17 08:09 Dose: Not Given Results 12/25/17 04:06 12/25/17 04:06 CBC 12/24/17 12/24/17 12/25/17 Range/Units 14:14 21:19 04:06 WBC 6.0 9.0 D 6.1 (4.5-11.0) T/MM3 RBC 4.83 4.57 4.70 (4.00-5.20) M/MM3 Hgb 14.0 13.4 13.7 (12-16) GM/DL Hct 42.8 40.6 42.0 (36-46) % Plt Count 151 137 120 L (130-400) T/MM3 Neut # (Auto) 2.7 6.3 4.2 (1.8-7.7) T/MM3 Lymph # (Auto) 2.6 1.8 1.3 (1-4.8) T/MM3 Bacon # (Auto) 0.5 0.7 0.6 (0-0.8) T/MM3 Eos # (Auto) 0.2 0.2 0.1 (0-0.5) T/MM3 Baso # (Auto) 0.0 0.0 0.0 (0-0.2) T/MM3 Comprehensive Metabolic Panel 12/24/17 12/25/17 Range/Units 14:14 04:06 Sodium 148 H 146 H (134-144) MEQ/L Potassium 3.5 L 3.5 L (3.6-5) MEQ/L Chloride 104 106 (98-107) MEQ/L Carbon Dioxide 33 H 33 H (22-30) MEQ/L BUN 25.0 H 25.0 H (7-17) MG/DL Creatinine 1.0 0.9 (0.7-1.2) mg/dL Glucose 102 126 H (65-110) MG/DL Calcium 9.2 8.8 (8.4-10.2) MG/DL Intake and Output 12/24/17 12/25/17 12/25/17 22:59 06:59 14:59 Intake Total 240 / 240 876.25 / 876.25 0 / 0 Output Total 225 / 225 300 / 300 Balance 576.25 / 576.25 0 / 0 Intake: IV 876.25 / 876.25 0 / 0 Cefazolin 1 g In Ns 50 ml @ 100 50 / 50 mls/hr IV Q8HR [facility] Rx#: [id number] Ns 1,000 ml @ 75 mls/hr IV . 826.25 / 826.25 0 / 0 [id number] [facility]ANTHA Rx#:[id number] Oral 240 / 240 Output: Urine 225 / 225 300 / 300 Other: Urine Appearance Clear Clear Urine Color Bright Yellow Straw Urine Odor Normal Normal # Voids 1 1 - Imaging and Cardiology Imaging & Cardiology Narrative: Date of Exam: 12/24/17 Ordering Provider: James John MD Type of Exam(s): XR chest 1V Reason for Exam(s): ppm Indication: ppm PROCEDURE: XR chest 1V: Encounter: Initial Comparison: October 08, 2017 and December 25, 2017 Findings: New right-sided pacemaker defibrillator with a right ventricular lead. Lungs are clear. There is a very subtle small left apical pneumothorax. The pleural margin is difficult to visualize. This appears to be on the order of 5% or less. Heart size and mediastinal contours are stable. Impression: New right sided pacemaker with a small right apical pneumothorax. Finding was called to the ordering physician at 0845 on December 25, 2017. 12/25/17 09:19 12/25/17 09:20 Date of Exam: 12/25/17 Ordering Provider: James John MD Type of Exam(s): XR chest 2V Reason for Exam(s): ppm INDICATION: ppm PROCEDURE: CHEST 2-VIEWS UPRIGHT (PA & LAT) Encounter: Initial COMPARISON: December 24, 2017 FINDINGS: Significant interval worsening in the right sided pneumothorax which is now moderate on the order of 40% with developing collapse of the right lung. No mediastinal shift seen currently. No left-sided pneumothorax or pleural effusion. Heart size and mediastinal contours are stable. Right sided pacemaker defibrillator is stable in position with a right ventricular lead. Impression: Enlarging right-sided pneumothorax. Findings called to the ordering physician at 0845 on December 25, 2017. Assessment and Plan - Assessment and Plan (1) Pneumothorax on right Status: Acute 5% pneumo on initial post op CXR - 40% this am - Recheck at noon - Consult to general surgeon Dr. Higginbotham for possible chest tube insertion. (2) Paroxysmal atrial fibrillation Status: Chronic V paced, tachycardic - Metoprolol Succinate 100mg po daily - Hold Digoxin for now - Monitor rate on cardiac telemetry (3) Essential (primary) hypertension Status: Chronic Well controlled on current therapy (4) Cardiomyopathy Status: Chronic S/P ICD implant on right side - Continue Entresto (5) Mixed hyperlipidemia Status: Chronic Takes Atorvastatin, PCP manages - Assessment and Plan Pneumothorax: 5% pneumo on initial post op CXR - 40% this am - Recheck at noon - Consult to general surgeon Dr. Higginbotham for possible chest tube insertion. PAF: V paced, tachycardic - Metoprolol Succinate 100mg po daily - Hold Digoxin for now - Monitor rate on cardiac telemetry CM: S/P ICD implant on right side - Continue Entresto HTN HLD: Takes Atorvastatin, PCP manages Hospital Course Summary Disclaimer: The visit summary below is not to be considered part of the above Progress Note. <James John - Last Filed: 12/30/17 16:59> Exam Vital signs: Temperature 97.8 F 12/26/17 12:00 Pulse Rate 65 12/26/17 12:00 Respiratory Rate 18 12/26/17 12:00 Blood Pressure 161/70 H 12/26/17 12:00 Pulse Oximetry 94 12/26/17 12:00 Inpatient Medications: Discontinued Medications Generic Name Dose Route Start Last Admin Trade Name Freq PRN Reason Stop Dose Admin Acetaminophen/Codeine Phosphate 1 - 2 tab 12/24/17 17:13 12/25/17 07:48 Tylenol With Codeine #3 (300/30) PO 1 tab Q4H PRN Administration Pain Al Hydroxide/Mg Hydroxide 30 ml 12/24/17 17:13 Maalox Plus PO Q3H PRN Indigestion Allopurinol 150 mg 12/25/17 09:00 12/26/17 10:30 Zyloprim PO Not Given DAILY [facility] Aspirin 81 mg 12/25/17 09:00 12/26/17 10:30 Ecotrin PO Not Given DAILY [facility] Atorvastatin Calcium 20 mg 12/24/17 21:00 12/25/17 20:18 Lipitor PO 20 mg HS [facility] Administration Cholecalciferol 400 unit 12/24/17 21:00 12/24/17 21:30 Vit. D-3 PO Not Given HS [facility] Cholecalciferol 1,000 unit 12/25/17 21:00 12/25/17 20:17 Vit. D-3 PO 1,000 unit HS [facility]A Administration Coenzyme Q10 200 mg 12/25/17 09:00 12/26/17 10:31 Co Q-10 PO Not Given DAILY [facility] Docusate Sodium 100 mg 12/24/17 21:00 12/26/17 10:31 Colace PO Not Given BID [facility] Enoxaparin Sodium 40 mg 12/26/17 09:00 12/26/17 10:31 Lovenox SQ Not Given DAILY [facility] Furosemide 40 mg 12/25/17 09:00 12/26/17 10:31 Lasix PO Not Given DAILY [facility] Furosemide 40 mg 12/24/17 20:00 12/25/17 20:19 Lasix PO 40 mg PM [facility] Administration Glucosamine/Chondroitin 1 cap 12/25/17 09:00 12/26/17 10:31 Osteo Bi-Flex PO Not Given DAILY [facility] Hydralazine HCl 10 mg 12/25/17 21:06 12/26/17 00:22 Apresoline PO Not Given TIDWM [facility] Hydralazine HCl 10 mg 12/26/17 08:00 12/26/17 11:54 Apresoline PO Not Given TIDWM [facility] Sodium Chloride 1,000 mls @ 75 mls/hr 12/24/17 11:15 12/26/17 14:22 Normal Saline IV Infused .[id number] [facility] Infusion Cefazolin Sodium 1 g/ Sodium 50 mls @ 100 mls/hr 12/24/17 23:00 12/25/17 11: 26 Chloride IV 12/25/17 09:29 Infused Q8HR [facility] Infusion Ketorolac Tromethamine 15 mg 12/26/17 09:58 12/26/17 10:05 Toradol Inj IVP 12/26/17 09:59 15 mg O ONE Administration Levalbuterol HCl 1.25 mg 12/24/17 17:13 Xopenex 1.25mg/3ml AEROSOL Q8HR PRN Dyspnea Levothyroxine Sodium 25 mcg 12/25/17 09:00 12/26/17 10:31 Synthroid PO Not Given DAILY [facility] Magnesium Oxide 200 mg 12/24/17 21:00 12/25/17 20:18 Magox PO 200 mg HS [facility] Administration Metoprolol Succinate 100 mg 12/25/17 09:00 12/26/17 13:53 Toprol Xl PO 100 mg DAILY [facility] Administration Metoprolol Succinate 100 mg 12/26/17 13:28 12/26/17 14:17 Toprol Xl PO 12/26/17 13:29 100 mg O ONE Administration Metoprolol Succinate 200 mg 12/27/17 09:00 Toprol Xl PO DAILY [facility] Minocycline HCl 100 mg 12/25/17 09:00 12/26/17 10:31 Minocin PO 01/01/18 08:59 Not Given BID [facility] Mirtazapine 15 mg 12/24/17 21:00 12/25/17 20:19 Remeron PO 15 mg HS [facility] Administration Multivitamins/Minerals 1 tab 12/25/17 09:00 12/26/17 10:32 Therapeutic - M PO Not Given DAILY [facility] Omeprazole 20 mg 12/25/17 06:30 12/26/17 05:47 Prilosec PO Not Given ACB [facility] Potassium Chloride 20 meq 12/26/17 08:00 12/26/17 10:30 K-Dur 20 Meq Tablet PO Not Given WB [facility] Sacubitril/Valsartan 1 tab 12/24/17 21:00 12/24/17 21:25 Entresto 49/51mg PO Not Given BID [facility] Sacubitril/Valsartan 1 tab 12/25/17 14:17 12/26/17 13:52 Entresto 49/51mg PO 1 tab BID [facility] Administration Sodium Chloride 10 ml 12/24/17 11:07 Iv Flush IV PRN PRN Flushing Zinc Gluconate 50 mg 12/25/17 09:00 12/26/17 10:32 Zinc Gluconate PO Not Given DAILY [facility] Results 12/26/17 04:13 12/26/17 04:13 Assessment and Plan - Assessment and Plan (1) Cardiomyopathy Status: Chronic (2) Pneumothorax on right Status: Acute (3) Paroxysmal atrial fibrillation Status: Chronic (4) Essential (primary) hypertension Status: Chronic (5) Mixed hyperlipidemia Status: Chronic - Attestation Attestation Narrative: 12/30/17 16:59 Recommendation After examining the patient I agree with the above assessment. I am involved in the formulation of the patient's plan of care. Hospital Course Summary Disclaimer: The visit summary below is not to be considered part of the above Progress Note.
[2017-12-25] MEDS: CEFAZOLIN 1 G in NS 50 ML IV SCH (10:26)
[2017-12-25] MEDS: DOCUSATE SODIUM 100 MG PO SCH ×2 (10:26→20:17)
[2017-12-25] MEDS: METOPROLOL SUCCINATE 100 MG PO SCH (10:28)
--- NOTE | 2017-12-25 12:18 | XRay Report ---
Indication: follow pneumothorax PROCEDURE: XR chest 1V: Encounter: Initial Comparison: December 25, 2017 at 0605 Findings: Right pneumothorax is smaller currently on the order of 20%. Right lung atelectasis has improved. There is new subcutaneous emphysema in the right chest. Left lung appears stable and clear. Right sided pacemaker is stable in appearance. Heart size and mediastinal contours are stable. Impression: Decreasing right pneumothorax. .
--- NOTE | 2017-12-25 12:23 | General Surgery Consult Note ---
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 Other HEENT Yes: DEAF ON RIGHT EAR Cardiac Arrhythmia Yes: A FIB Congestive Heart Failure Yes Hypertension Yes Other Cardiology Yes: A FIB AT ALL TIMES Bronchitis Yes: ALWAYS Pneumonia Yes Gastroesophageal Reflux Yes Disease Other Yes: HX UTI'S Anemia Yes Other Hematologic Yes: pradaxa xelerto eliquis due to afib Osteoarthritis Yes MRSA Yes Sepsis Yes: RESOLVED MRSA "NEAR THE HEART" Chemotherapy Yes: 2002 [facility] Medical History (Last Updated 11/04/17 @ 14:46 by JAIRO Batista) CKD (chronic kidney disease) (Chronic Medical) Sleep apnea (Chronic Medical) Arthritis (Chronic Medical) GERD (gastroesophageal reflux disease) (Chronic Medical) COPD (chronic obstructive pulmonary disease) (Chronic Medical) CHF (congestive heart failure) (Chronic Medical) Atrial fibrillation (Chronic Medical) Cardiomyopathy (Chronic Medical) Migraine (Chronic Medical) Gout (Chronic Medical) HLD (hyperlipidemia) (Chronic Medical) Hypothyroidism (Chronic Medical) Acoustic neuroma (Chronic Medical) Malignant tumor of breast (Acute Medical) Basal cell carcinoma (Acute Medical) Surgical History: Hysterectomy 10/21/1969. Cystoscopy 10/21/2011. Colonoscopy 2012. Echo Transthoracic 03/28/17. Mastectomy of left breast age 67. TKA Left 2010 Right 2010. Cholecystectomy 2010. Heart Cath 12/07/16. Port Cath Insertion 2002 removal 2010 Family History: Family History (Last Updated 11/04/17 @ 14:49 by JAIRO Batista) Father HTN (hypertension) Heart disease Mother HTN (hypertension) Heart disease Arthritis Cerebrovascular accident (CVA) Sister Breast cancer Brother Heart disease - Social History Smoking status: Never smoker Substance use type: does not use Alcohol intake frequency: does not drink Housing: apartment Household members: family Current occupational status: retired Medications Home Medications Medication Instructions Recorded Confirmed Type Allopurinol 150 mg PO DAILY #0 06/12/10 12/24/17 History Omeprazole 20 mg PO ACB #0 05/04/16 12/24/17 History Furosemide 40 mg PO DAILY #0 08/05/16 12/24/17 History Cholecalciferol (Vitamin D3) 400 unit PO HS #0 12/05/16 12/24/17 History [Vitamin D3] Docusate Sodium 100 mg PO BID #0 12/05/16 12/24/17 History Potassium Chloride [K-DUR 20 mEq 20 meq PO DAILY #0 12/05/16 04/12/17 History Tablet] Atorvastatin [Lipitor] 20 mg PO HS 04/12/17 12/24/17 History levothyroxine 25 mcg tablet 25 mcg PO DAILY 11/04/17 12/24/17 History Aspirin [Aspirin EC] 81 mg PO DAILY 12/24/17 12/24/17 History Carvedilol [Coreg] 1 tab PO BIDWM 12/24/17 12/24/17 History Digoxin [Digoxin] 0.125 mg PO Q2D 12/24/17 12/24/17 History Furosemide [Lasix] 40 mg PO PM 12/24/17 12/24/17 History Glucosa Garg 2Kcl/Chondroitin Garg 1 each PO DAILY 12/24/17 12/24/17 History [Glucosamine Chondroitin Caplet] Levalbuterol 1.25mg/3ml NEB 1.25 mg AEROSOL Q8HR PRN 12/24/17 12/24/17 History [XOPENEX 1.25mg/3ml] Magnesium 250 mg PO HS 12/24/17 12/24/17 History Mirtazapine [Remeron] 15 mg PO HS 12/24/17 12/24/17 History Multivit-Min/Iron/Folic/Lutein 1 each PO DAILY 12/24/17 12/24/17 History [Centrum Silver Women Tablet] SACUBITRIL/VALSARTAN 49/51mg 1 tab PO BID 12/24/17 12/24/17 History [ENTRESTO 49/51mg] Ubidecarenone/Vit E Acet [Co Q-10 1 each PO DAILY 12/24/17 12/24/17 History 100 mg Softgel] Zinc 50 mg PO DAILY 12/24/17 12/24/17 History Allergies Allergy/AdvReac Type Severity Reaction Status Date / Time Sulfa (Sulfonamide Allergy Intermediate NAUSEA, Verified 11/04/17 14:43 Antibiotics) VOMIT adhesive tape Allergy Unknown Verified 11/04/17 14:43 morphine Allergy Unknown SHORTNESS Verified 11/04/17 14:43 OF BREATH,Diarrhea Review of Systems 10-point ROS: negative except for HPI and the following: - Cardiovascular Cardiovascular: Present: other (states feeling better now than before the pacemaker, is surprised that there is a "collapsed lung") - Musculoskeletal Musculoskeletal: Present: joint pain - Neurological Neurological: Present: muscle weakness - Hematologic/Lymphatic Hematologic/Lymphatic: Present: easy bruising - Vital Signs Last Vital Signs Temp 96.8 F 12/25/17 08:00 Pulse 62 12/25/17 11:15 Resp 28 H 12/25/17 11:15 BP 160/70 H 12/25/17 11:01 Pulse Ox 94 12/25/17 11:15 - Laboratory Result Diagrams: 12/25/17 04:06 12/25/17 04:06 General Surgery Results - Results Labs: 12/25/17 04:06 12/25/17 04:06 Hospital Course Summary Disclaimer: The visit summary below is not to be considered part of the above Progress Note.
--- NOTE | 2017-12-25 16:46 | Operative Note ---
DATE OF SERVICE 12/25/2017 FINDINGS Mrs. Fonseca is an 82-year-old female whom I was asked to see today as a result of development of postoperative pneumothorax. Yesterday the patient did undergo placement of a right-sided pacemaker defibrillator. She did have a small pneumothorax postoperatively. The patient did have a component of some hypotension and was transferred to the ICU following her procedure. This morning a repeat chest x-ray was obtained that did reveal marked increase of her pneumothorax to around 40%-50%. Upon entering the ICU room the patient did not appear to be in acute distress. She denied significant shortness of breath. She states that she was having some incisional discomfort at the site of her pacemaker/defibrillator. She denied any radiating features of this incisional discomfort. PAST MEDICAL HISTORY, PAST SURGICAL HISTORY, MEDICATIONS, ALLERGIES, SOCIAL HISTORY, FAMILY HISTORY, REVIEW OF SYSTEMS Performed by my nurse practitioner, Harshal Calderon APRN. PHYSICAL EXAMINATION Mrs. Fonseca is an 82-year-old female who did not appear to be in acute distress. She was conversant and understandably somewhat upset as a result of the potential need for placement of a chest tube. VITAL SIGNS: Temperature 96.8, pulse 61, respirations 21, blood pressure 167/ 117, SAO2 98% on room air. HEENT: Normocephalic. Pupils are equally round and react to light and accommodation. CHEST: Auscultation of the chest does reveal diminished breath sounds in the right apices compared to the left. Lung sounds within the bases were clear to auscultation. HEART: Regular rate and rhythm. Normal S1 and S2 without gallops, murmurs or clicks. ABDOMEN: Palpation of the abdomen reveals it to be soft and nontender. I do not appreciate any evidence for hepatosplenomegaly nor abnormal masses. EXTREMITIES: Without clubbing, cyanosis, or edema. NEURO: Cranial nerves II-XII grossly intact. Patient is without focal motor or sensory deficits. LABORATORY/RADIOGRAPHIC EVALUATION I did review the patient's chart electronically. I specifically reviewed her chest x-ray obtained earlier this morning that did reveal a 40%-50% right-sided pneumothorax. We did order an additional film this afternoon and surprisingly the pneumothorax has markedly improved to perhaps about 20% at this time. ASSESSMENT 82-year-old female status post insertion of permanent pacemaker/defibrillator with postoperative development of right-sided pneumothorax. PLAN Given the fact that this pneumothorax has improved since this morning I would recommend that we go ahead and hold off on placement of tube thoracostomy at this time. Will go ahead and repeat chest x-ray this evening. If her pneumothorax continues to slowly improve we will not proceed with tube thoracostomy. If, on the other hand, her pneumothorax begins to reoccur, of course we will then proceed with tube thoracostomy. The above plan was discussed with the patient and her daughter who was present this afternoon. ARSEN
--- NOTE | 2017-12-25 17:24 | XRay Report ---
Indication: recheck pneumothorax PROCEDURE: XR chest 1V: Encounter: Initial Comparison: December 25, 2017 at 1205 Findings: Small to moderate right apical lateral pneumothorax is stable in size. The left lung is stable and clear. No pleural effusion. Mild subcutaneous emphysema in the right chest wall is slightly decreased. Heart size and mediastinal contours are stable. Right-sided cardiac pacemaker defibrillator is stable in appearance. Impression: Stable appearance of the right pneumothorax. .
[2017-12-25] MEDS: SACUBITRIL/VALSARTAN 49/51mg TABLET PO SCH ×2 (18:10→20:06)
[2017-12-25] MEDS: MAGNESIUM OXIDE 400 MG TABLET PO SCH (20:18)
[2017-12-25] MEDS: --POM--ATORVASTATIN 40 MG TABLET PO SCH (20:18)
[2017-12-25] MEDS: MIRTAZAPINE 15 MG PO SCH (20:19)
[2017-12-25] MEDS: --POM--FUROSEMIDE 20 MG TABLET PO SCH (20:19)
[2017-12-25] MEDS ORDERED: CHOLECALCIFEROL 1000 UNIT PO SCH (21:00)
[2017-12-25] MEDS ORDERED: HYDRALAZINE 10 MG TABLET PO SCH (21:06)
[2017-12-26] MEDS: NS 1,000 ML IV SCH ×2 (00:55→05:47)
[2017-12-26] MEDS: OMEPRAZOLE 20 MG CAPSULE PO SCH (05:47)
[2017-12-26 07:50] VITALS: RESP 18
--- NOTE | 2017-12-26 08:48 | XRay Report ---
Indication: recheck of pneumothorax PROCEDURE: XR chest 1V: Encounter: Initial Comparison: December 25, 2017 at 1708 Findings: Moderate-sized right pneumothorax is stable in appearance allowing for differences in rotation. This is probably on the order of 25%. Continued partial collapse of the right lung without significant change. Left lung is stable and clear. No left-sided pneumothorax or definite effusion. Right subcutaneous chest wall emphysema again noted. Heart size and mediastinal contours are stable. Right pacemaker is unchanged. Impression: Stable moderate right pneumothorax. .
[2017-12-26] MEDS ORDERED: ENOXAPARIN 40 MG/0.4 ML INJECTION SQ SCH (09:00)
[2017-12-26] MEDS: HYDRALAZINE 10 MG TABLET PO SCH ×2 (09:18→11:54)
[2017-12-26] MEDS ORDERED: KETOROLAC 15 MG/ML INJECTION IVP ONE (09:58)
[2017-12-26] MEDS: --POM--ASPIRIN *EC* 81 MG TABLET PO SCH (10:30)
[2017-12-26] MEDS: --POM--ALLOPURINOL 300 MG TABLET PO SCH (10:30)
[2017-12-26] MEDS: --POM--FUROSEMIDE 40 MG TABLET PO SCH (10:31)
[2017-12-26] MEDS: GLUCOSAMINE/CHONDROITIN 500 MG/400 MG CAPSULE PO SCH (10:31)
[2017-12-26] MEDS: --POM--LEVOTHYROXINE 25 MCG TABLET PO SCH (10:31)
[2017-12-26] MEDS: METOPROLOL SUCCINATE 100 MG PO SCH ×2 (10:31→13:53)
[2017-12-26] MEDS: MINOCYCLINE 100 MG CAPSULE PO SCH (10:31)
[2017-12-26] MEDS: COENZYME Q10 200 MG PO SCH (10:31)
[2017-12-26] MEDS: DOCUSATE SODIUM 100 MG PO SCH (10:31)
[2017-12-26] MEDS: ZINC GLUCONATE 50 MG TABLET PO SCH (10:32)
[2017-12-26] MEDS: SACUBITRIL/VALSARTAN 49/51mg TABLET PO SCH ×2 (10:32→13:52)
[2017-12-26] MEDS: MULTI-VITAMIN + MINERAL TABLET PO SCH (10:32)
--- NOTE | 2017-12-26 11:51 | General Surgery Progress Note ---
Subjective Narrative: Daughter states Matt is a little confused at times. Patient complains of right arm pain. She is anxious and states she is having trouble breathing. She has been put on O2 at her request, Sat on room air was 96%. - Vital Signs Last Vital Signs Temp 97.3 F 12/26/17 07:49 Pulse 78 12/26/17 07:56 Resp 18 12/26/17 07:49 BP 152/75 H 12/26/17 07:49 Pulse Ox 97 12/26/17 08:07 - Laboratory Result Diagrams: 12/26/17 04:13 12/26/17 04:13 - Abnormal Exam General: confused (at times, at one point thought she had "lost her foot") Respiratory: other (diminished right upper) Cardiovascular: irregular rhythm - Normal Exam General: oriented (currently) Respiratory: clear bilaterally (lower lobes and left upper lobe), no labored breathing Abdominal: incision(s) (right chest in tact, steri strips in place, fresh early ecchymosis of upper pacemaker flap) Assessment and Plan (1) Pneumothorax on right Current Visit: Yes Status: Acute Plan: Pneumothorax has spontaneously decreased in size to around 20-25%, from around 50%. Will hold off on chest tube at this time. Orders have been placed in radiology for CXR as an outpatient for January 01 in the AM. We will call her the results. She is to report to the ED if she has increasing SOA. Hospital Course Summary Disclaimer: The visit summary below is not to be considered part of the above Progress Note.
[2017-12-26 14:01] VITALS: BP 161/70; PULSE 65; TEMP 97.8; O2SAT 94
--- NOTE | 2017-12-26 14:28 | Discharge Summary ---
<Beryl Morgan - Last Filed: 12/26/17 14:25> Discharge Information Date of admission: 12/25/17 13:36 Anticipated date of discharge: 12/26/17 Attending Physician: James John MD Primary care physician: Cynthia Gonsalves MD Consults: 12/25/17 09:07 Physician Consult [CONS] Routine Consulting Provider: Aris Higginbotham Reason For Exam: pneumothorax Ordering Provider has Notified Electrical Line Mechanic: Yes Comment: Spoke to Harshal - Discharge Diagnosis (1) Pneumothorax on right Status: Acute (2) Paroxysmal atrial fibrillation Status: Chronic (3) Essential (primary) hypertension Status: Chronic (4) Cardiomyopathy Status: Chronic (5) Mixed hyperlipidemia Status: Chronic Cardiomyopathy, S/P ICD PPM. PAF - Procedures Procedures: ICD PPM insertion to right chest due to mastectomy on Left - Laboratory Labs: 12/26/17 04:13 12/26/17 04:13 History of Present Illness HPI: Matt is an 82 year old female who is well known to Dr. John with a history of PAF, HTN, HLD who is admitted for outpatient insertion of ICD pacemaker on right side. Hospital Course This is a general summary of the patient's hospital course. For more details refer to the complete medical record. Hospital course: 12/25/17 Pneumothorax: 5% pneumo on initial post op CXR - 40% this am - Recheck at noon - Consult to general surgeon Dr. Higginbotham for possible chest tube insertion. PAF: V paced, tachycardic - Metoprolol Succinate 100mg po daily - Hold Digoxin for now - Monitor rate on cardiac telemetry CM: S/P ICD implant on right side - Continue Entresto HTN HLD: Takes Atorvastatin, PCP manages 12/26/17 Pneumo improved. - Dr. Higginbotham recommends outpatient follow up chest x-ray. - DC to home with RX for CXR tomorrow and on 01/01/18 - Metoprolol 200mg BID for rate control and BP control. Exam Vital signs: Temperature 97.8 F 12/26/17 12:00 Pulse Rate 65 12/26/17 12:00 Respiratory Rate 18 12/26/17 12:00 Blood Pressure 161/70 H 12/26/17 12:00 Pulse Oximetry 94 12/26/17 12:00 - Constitutional no acute distress, well developed, cooperative - Routine HEENT Exam Head: Present: normocephalic Nose: moist mucous membranes - Routine Neck Exam Absent: JVD, carotid bruit - Routine Chest/Breast/Axilla Exam Chest wall: Present: tenderness, pacemaker - Routine Respiratory Exam Present: CTA bilaterally. Absent: dyspnea, rales, wheezes - Routine Cardiovascular Exam Present: murmur (II/), irregularly irregular. Absent: JVD - Routine Abdominal Exam Present: soft, normoactive bowel sounds - Routine Extremities Exam Present: no edema - Routine Skin Exam Present: intact, dry, warm - Routine Neurological Exam Present: alert - Routine Psychiatric Exam Present: normal affect Results 12/26/17 04:13 12/26/17 04:13 CBC 12/26/17 Range/Units 04:13 WBC 7.3 (4.5-11.0) T/MM3 RBC 5.01 (4.00-5.20) M/MM3 Hgb 14.4 (12-16) GM/DL Hct 43.8 (36-46) % Plt Count 138 (130-400) T/MM3 Comprehensive Metabolic Panel 12/26/17 Range/Units 04:13 Sodium 144 (134-144) MEQ/L Potassium 3.3 L (3.6-5) MEQ/L Chloride 104 (98-107) MEQ/L Carbon Dioxide 31 H (22-30) MEQ/L BUN 19.0 H (7-17) MG/DL Creatinine 0.9 (0.7-1.2) mg/dL Glucose 111 H (65-110) MG/DL Calcium 8.5 (8.4-10.2) MG/DL Intake and Output 12/25/17 12/26/17 12/26/17 22:59 06:59 14:59 Intake Total 1100 / 1100 525.00 / 525.00 693.75 / 693.75 Output Total 150 / 150 Balance 950 / 950 525.00 / 525.00 693.75 / 693.75 Intake: IV 600 / 600 525.00 / 525.00 693.75 / 693.75 Ns 1,000 ml @ 75 mls/hr IV . 600 / 600 525.00 / 525.00 693.75 / 693.75 [id number] [facility] Rx#:[id number] Oral 500 / 500 Output: Urine 150 / 150 Other: Urine Appearance Clear Clear Urine Color Light Ana Yellow # Voids 1 1 1 Weight 181 lb 3.52 oz Patient Weight 12/27/17 06:59 Weight 181 lb 3.52 oz - Imaging and Cardiology Imaging & Cardiology Narrative: Date of Exam: 12/24/17 Ordering Provider: James John MD Type of Exam(s): XR chest 1V Reason for Exam(s): ppm Indication: ppm PROCEDURE: XR chest 1V: Encounter: Initial Comparison: October 08, 2017 and December 25, 2017 Findings: New right-sided pacemaker defibrillator with a right ventricular lead. Lungs are clear. There is a very subtle small left apical pneumothorax. The pleural margin is difficult to visualize. This appears to be on the order of 5% or less. Heart size and mediastinal contours are stable. Impression: New right sided pacemaker with a small right apical pneumothorax. Date of Exam: 12/25/17 Ordering Provider: James John MD Type of Exam(s): XR chest 2V Reason for Exam(s): ppm INDICATION: ppm PROCEDURE: CHEST 2-VIEWS UPRIGHT (PA & LAT) Encounter: Initial COMPARISON: December 24, 2017 FINDINGS: Significant interval worsening in the right sided pneumothorax which is now moderate on the order of 40% with developing collapse of the right lung. No mediastinal shift seen currently. No left-sided pneumothorax or pleural effusion. Heart size and mediastinal contours are stable. Right sided pacemaker defibrillator is stable in position with a right ventricular lead. Impression: Enlarging right-sided pneumothorax. Findings called to the ordering physician at 0845 on December 25, 2017. Date of Exam: 12/25/17 Ordering Provider: Sydney Calderon APRN Type of Exam(s): XR chest 1V Reason for Exam(s): follow pneumothorax Indication: follow pneumothorax PROCEDURE: XR chest 1V: Encounter: Initial Comparison: December 25, 2017 at 0605 Findings: Right pneumothorax is smaller currently on the order of 20%. Right lung atelectasis has improved. There is new subcutaneous emphysema in the right chest. Left lung appears stable and clear. Right sided pacemaker is stable in appearance. Heart size and mediastinal contours are stable. 12/26/17 14:29 Date of Exam: 12/25/17 Ordering Provider: Aris Higginbotham MD Type of Exam(s): XR chest 1V Reason for Exam(s): recheck pneumothorax Indication: recheck pneumothorax PROCEDURE: XR chest 1V: Encounter: Initial Comparison: December 25, 2017 at 1205 Findings: Small to moderate right apical lateral pneumothorax is stable in size. The left lung is stable and clear. No pleural effusion. Mild subcutaneous emphysema in the right chest wall is slightly decreased. Heart size and mediastinal contours are stable. Right-sided cardiac pacemaker defibrillator is stable in appearance. Impression: Stable appearance of the right pneumothorax. 12/26/17 14:29 Date of Exam: 12/26/17 Ordering Provider: Aris Higginbotham MD Type of Exam(s): XR chest 1V Reason for Exam(s): recheck of pneumothorax Indication: recheck of pneumothorax PROCEDURE: XR chest 1V: Encounter: Initial Comparison: December 25, 2017 at 1708 Findings: Moderate-sized right pneumothorax is stable in appearance allowing for differences in rotation. This is probably on the order of 25%. Continued partial collapse of the right lung without significant change. Left lung is stable and clear. No left-sided pneumothorax or definite effusion. Right subcutaneous chest wall emphysema again noted. Heart size and mediastinal contours are stable. Right pacemaker is unchanged. Impression: Stable moderate right pneumothorax. Discharge Plan - Med Rec/Dispo Referrals/Follow Up: Aris Higginbotham MD [Physician] - 01/01/18 (Report to x-ray at the hospital anytime from 8-12 in the morning for a chest x-ray, you can go home after the x- ray, we will call you with the results.) James John MD [Physician] - [facility] Instructions: [facility] [place] Prescriptions: New Metoprolol Succinate (XL) [Toprol Xl] 200 mg PO DAILY #120 tab Minocycline [Minocin] 100 mg PO BID #11 cap Continue Furosemide 40 mg PO DAILY #0 Docusate Sodium 100 mg PO BID #0 Atorvastatin [Lipitor] 20 mg PO HS Furosemide [Lasix] 40 mg PO PM Glucosa Garg 2Kcl/Chondroitin Garg [Glucosamine Chondroitin Caplet] 1 each PO DAILY Levalbuterol 1.25mg/3ml NEB [XOPENEX 1.25mg/3ml] 1.25 mg AEROSOL Q8HR PRN PRN Reason: Dyspnea Magnesium 250 mg PO HS Mirtazapine [Remeron] 15 mg PO HS SACUBITRIL/VALSARTAN 49/51mg [ENTRESTO 49/51mg] 1 tab PO BID Ubidecarenone/Vit E Acet [Co Q-10 100 mg Softgel] 1 each PO DAILY Zinc 50 mg PO DAILY Allopurinol 150 mg PO DAILY #0 Omeprazole 20 mg PO ACB #0 Potassium Chloride [K-DUR 20 mEq Tablet] 20 meq PO DAILY #0 Aspirin [Aspirin EC] 81 mg PO DAILY Multivit-Min/Iron/Folic/Lutein [Centrum Silver Women Tablet] 1 each PO DAILY Cholecalciferol [Vit. D-3] 1,000 units PO DAILY levothyroxine 25 mcg tablet 25 mcg PO DAILY Discontinued Carvedilol [Coreg] 1 tab PO BIDWM Digoxin [Digoxin] 0.125 mg PO Q2D - Disposition [facility] - Dismissal Complete Discharge Instructions are:: Complete <James John - Last Filed: 01/01/18 07:40> Discharge Information Date of admission: 12/25/17 13:36 Attending Physician: James John MD Primary care physician: Cynthia Gonsalves MD Consults: 12/25/17 09:07 Physician Consult [CONS] Routine Consulting Provider: Aris Higginbotham Reason For Exam: pneumothorax Ordering Provider has Notified Electrical Line Mechanic: Yes Comment: Spoke to Harshal - Discharge Diagnosis (1) Cardiomyopathy Status: Chronic (2) Pneumothorax on right Status: Acute (3) Paroxysmal atrial fibrillation Status: Chronic (4) Essential (primary) hypertension Status: Chronic (5) Mixed hyperlipidemia Status: Chronic - Laboratory Labs: 12/26/17 04:13 12/26/17 04:13 Hospital Course This is a general summary of the patient's hospital course. For more details refer to the complete medical record. Exam Vital signs: Temperature 97.8 F 12/26/17 12:00 Pulse Rate 65 12/26/17 12:00 Respiratory Rate 18 12/26/17 12:00 Blood Pressure 161/70 H 12/26/17 12:00 Pulse Oximetry 94 12/26/17 12:00 Results 12/26/17 04:13 12/26/17 04:13 Attestation Narriative - Attestation Attestation Narrative: 01/01/18 07:40 Recommendation After examining the patient I agree with the above assessment. I am involved in the formulation of the patient's plan of care.
== END 2017-12-26 16:10 | disposition home health service (06) | DRG 982 ==
LOC: CATH 13:14 → SRG 13:17 → CCU 20:22 → SRG 12-26 07:20
PROVIDERS: ADMIT Internal Medicine Cardiovascular Disease; ATTEND Internal Medicine Cardiovascular Disease

== ENCOUNTER → 2018-01-23 17:20 | Observation (INO) ==
[2018-01-22 12:34] VITALS: BMI 34.2
--- NOTE | 2018-01-22 15:09 | XRay Report ---
INDICATION: soa PROCEDURE: CHEST 2-VIEWS UPRIGHT (PA & LAT) Encounter: Initial COMPARISON: January 20, 2018 FINDINGS: Persistent mild airspace consolidation in the right lower lobe with a small effusion. This is unchanged from the recent comparison. No new or worsening airspace consolidation. No pneumothorax. Heart size and mediastinal contours are stable. Right pacemaker defibrillator. Impression: Stable appearance of the chest with right lower lobe airspace disease and small effusion. .
[2018-01-23 15:51] VITALS: BP 105/67; RESP 18; TEMP 97.4; O2SAT 93
[2018-01-23 16:08] VITALS: PULSE 114
--- NOTE | 2018-01-23 16:43 | Discharge Summary ---
<Beryl Morgan - Last Filed: 01/23/18 16:40> Discharge Information Date of admission: 01/22/18 11:43 Anticipated date of discharge: 01/23/18 Attending Physician: James John MD Primary care physician: Cynthia Gonsalves MD Systolic CHF - Laboratory Labs: 01/23/18 04:08 01/23/18 04:08 History of Present Illness HPI: 01/23/18 16:41 Matt is an 82 year old female who is well known to Dr. John. She presented to his clinic yesterday with SOA on exertion. She was admitted for observation and IV diuresis. Hospital Course This is a general summary of the patient's hospital course. For more details refer to the complete medical record. Hospital course: Matt received 2 doses IV Bumex, 2 doses in between those doses were held due to hypotension. Matt is now able to ambulate the halls without SOA. Time spent with patient: 25 - 35 minutes Resuscitation Status: Full Code Exam Vital signs: Temperature 97.4 F 01/23/18 15:49 Pulse Rate 114 H 01/23/18 16:00 Respiratory Rate 18 01/23/18 15:49 Blood Pressure 105/67 01/23/18 15:49 Pulse Oximetry 93 01/23/18 15:49 - Constitutional no acute distress, well nourished, cooperative - Routine HEENT Exam Head: Present: normocephalic ENT: Present: mucous membranes moist - Routine Neck Exam Absent: JVD, carotid bruit - Routine Chest/Breast/Axilla Exam Chest wall: Absent: tenderness - Routine Respiratory Exam Present: CTA bilaterally. Absent: rales, wheezes - Routine Cardiovascular Exam Present: tachycardia, irregular rhythm - Routine Abdominal Exam Present: soft, normoactive bowel sounds - Routine Extremities Exam Present: no edema - Routine Skin Exam Present: intact, dry, warm - Routine Neurological Exam Present: alert, oriented X3 - Routine Psychiatric Exam Present: normal affect, normal thought process Results 01/23/18 04:08 01/23/18 04:08 CBC 01/23/18 Range/Units 04:08 WBC 6.4 (4.5-11.0) T/MM3 RBC 5.15 (4.00-5.20) M/MM3 Hgb 15.0 (12-16) GM/DL Hct 44.7 (36-46) % Plt Count 117 L (130-400) T/MM3 Neut # (Auto) 2.5 (1.8-7.7) T/MM3 Lymph # (Auto) 2.3 (1-4.8) T/MM3 [place] # (Auto) 0.7 (0-0.8) T/MM3 Eos # (Auto) 0.9 H (0-0.5) T/MM3 Baso # (Auto) 0.0 (0-0.2) T/MM3 Comprehensive Metabolic Panel 01/23/18 Range/Units 04:08 Sodium 144 (134-144) MEQ/L Potassium 3.4 L (3.6-5) MEQ/L Chloride 101 (98-107) MEQ/L Carbon Dioxide 34 H (22-30) MEQ/L BUN 32.0 H (7-17) MG/DL Creatinine 1.1 (0.7-1.2) mg/dL Glucose 92 (65-110) MG/DL Calcium 9.2 (8.4-10.2) MG/DL Intake and Output 01/23/18 01/23/18 01/23/18 06:59 14:59 22:59 Intake Total 317 / 317 Output Total 750 / 750 350 / 350 Balance -750 / -750 -33 / -33 Intake: Oral 317 / 317 Output: Urine 750 / 750 350 / 350 Other: Urine Appearance Clear Clear Urine Color Yellow Yellow Urine Odor Strong Size of Bowel Movement Moderate # Voids 1 # Bowel Movements 1 Weight 172 lb 13.478 oz Patient Weight 01/24/18 06:59 Weight 172 lb 13.478 oz - Imaging and Cardiology Imaging & Cardiology Narrative: Date of Exam: 01/22/18 Ordering Provider: Beryl Morgan APRN Type of Exam(s): XR chest 2V Reason for Exam(s): soa INDICATION: soa PROCEDURE: CHEST 2-VIEWS UPRIGHT (PA & LAT) Encounter: Initial COMPARISON: January 20, 2018 FINDINGS: Persistent mild airspace consolidation in the right lower lobe with a small effusion. This is unchanged from the recent comparison. No new or worsening airspace consolidation. No pneumothorax. Heart size and mediastinal contours are stable. Right pacemaker defibrillator. Impression: Stable appearance of the chest with right lower lobe airspace disease and small effusion. 01/23/18 16:41 Discharge Plan - Med Rec/Dispo Referrals/Follow Up: James John MD [Physician] - 3 Weeks Prescriptions: New Furosemide [Lasix 80 mg Tab] 1 tab PO BID #60 tab Continue Atorvastatin [Lipitor] 20 mg PO HS Mirtazapine [Remeron] 15 mg PO HS SACUBITRIL/VALSARTAN 49/51mg [ENTRESTO 49/51mg] 1 tab PO BID Ubidecarenone/Vit E Acet [Co Q-10 100 mg Softgel] 1 each PO DAILY Zinc 50 mg PO DAILY Carvedilol 12.5 mg PO BIDWM Allopurinol [Zyloprim] 150 mg PO DAILY Magnesium 250 mg PO DAILY Glucosa Garg 2Kcl/Chondroitin Garg [Glucosamine Chondroitin Caplet] 1 each PO DAILY Cholecalciferol [Vit. D-3] 1,000 units PO DAILY Potassium Chloride [K-DUR 20 mEq Tablet] 20 meq PO DAILY #0 Aspirin [Aspirin EC] 81 mg PO DAILY Multivit-Min/Iron/Folic/Lutein [Centrum Silver Women Tablet] 1 each PO DAILY Omeprazole 20 mg PO ACB Docusate Sodium 100 mg PO BID levothyroxine 25 mcg tablet 25 mcg PO DAILY Discontinued Furosemide [Lasix 20 mg Tab] 40 mg PO PM Furosemide [Lasix 40 mg Tab] 1 tab PO DAILY - Disposition 01 Discharged Home, Self-Care - Dismissal Complete Discharge Instructions are:: Complete <James John - Last Filed: 01/28/18 12:55> Discharge Information Date of admission: 01/22/18 11:43 Attending Physician: James John MD Primary care physician: Cynthia Gonsalves MD - Laboratory Labs: 01/23/18 04:08 01/23/18 04:08 Hospital Course This is a general summary of the patient's hospital course. For more details refer to the complete medical record. Exam Vital signs: Temperature 97.4 F 01/23/18 15:49 Pulse Rate 114 H 01/23/18 16:00 Respiratory Rate 18 01/23/18 15:49 Blood Pressure 105/67 01/23/18 15:49 Pulse Oximetry 93 01/23/18 15:49 Results 01/23/18 04:08 01/23/18 04:08 Attestation Narriative - Attestation Attestation Narrative: 01/28/18 12:55 Recommendation After examining the patient I agree with the above assessment. I am involved in the formulation of the patient's plan of care.
[~2018-01-23 17:20] MED LIST changes: +ALLOPURINOL 300 MG TABLET PO SCH; +ASPIRIN *EC* 81 MG TABLET PO SCH; +ATORVASTATIN 20 MG TABLET PO SCH; +ATORVASTATIN 40 MG TABLET PO SCH; +CARVEDILOL 12.5 MG TABLET PO SCH; +DOCUSATE SODIUM 100 MG CAPSULE PO SCH; +LEVOTHYROXINE 25 MCG TABLET PO SCH; +MAGNESIUM 250 MG PO SCH; +MAGNESIUM OXIDE 400 MG TABLET PO SCH; +MIRTAZAPINE 15 MG TABLET PO SCH; +MULTI-VITAMIN + MINERAL TABLET PO SCH; +NON-FORMULARY MEDICATION 1 EACH EACH (Multivit-Min/Iron/Folic/Lutein [Centrum Silver Women PO SCH; +NON-FORMULARY MEDICATION 1 EACH EACH (Omeprazole [Omeprazole] 20 MG) PO SCH; +OMEPRAZOLE 20 MG CAPSULE PO SCH; +SACUBITRIL/VALSARTAN 49/51mg TABLET PO SCH
--- NOTE | 2018-01-23 19:21 | Echocardiogram ---
DATE OF PROCEDURE January 22, 2018 This is a two-dimensional echo with spectral Doppler, color-flow and M-mode. It was obtained in a patient with congestive heart failure. Left atrium is dilated. Left ventricle end-diastolic dimension is at the upper limits of normal. Left ventricle wall thickness is normal. Global hypokinesia is present with ejection fraction of about 25%. Right atrium is dilated. Right ventricle is normal. Aortic root dimension is normal. Mitral annulus is calcified. Mitral valve leaflets are normal with mild mitral regurgitation. Aortic valve shows fibrocalcific changes with no stenosis. Mild aortic insufficiency is present. Tricuspid valve shows mild tricuspid regurgitation with normal estimated pulmonary artery systolic pressure of 28. Pulmonary valve shows mild pulmonary insufficiency. There is no pericardial effusion. Device wire is seen in the right heart. IMPRESSION 1. Global hypokinesia with ejection fraction of about 25%. 2. Biatrial dilation. 3. Mitral annulus calcification with mild mitral regurgitation. 4. Aortic sclerosis with mild aortic insufficiency. 5. Mild tricuspid regurgitation with normal estimated pulmonary artery systolic pressure of 28. 6. Mild pulmonary insufficiency. 7. Device wire is present in right heart. [facility]
== END | disposition home or self-care (01) ==
LOC: MED
PROVIDERS: ADMIT Internal Medicine Cardiovascular Disease; ATTEND Internal Medicine Cardiovascular Disease